=== PATIENT | female | born 1980 | race Caucasian/White ===

== ENCOUNTER 2021-05-23 16:04 | Inpatient (IN) | payer BC, SELFPAY ==
[2021-05-23] VITALS (7 sets, daily range): BP systolic 144–170; BP diastolic 95–116; PULSE 103–127; RESP 16–18; TEMP 35.9–37.2; O2SAT 97–100; BMI 34.2
--- NOTE | 2021-05-23 16:20 | EDS_ITS ---
HPI History of Present Illness Chief Complaint: GI Bleed Informant: patient Onset/Context/Timing Onset: Today Context: Gradual Onset Current Severity: Mild Maximum Severity: Mild Narrative Narrative: Patient presents due to concern for GI bleed. She is a history of variceal bleed a year and a half ago and was treated at . Patient states she felt well when she went to bed last night. She woke this morning with an uncomfortable feeling in her abdomen similar to her prior GI bleed. She has been having dark black stools today. She feels nauseated but has not vomited. She is not currently in any prescription medication and has not followed up for her liver/varices since her last hospital admission. [facility] Medical History (Updated 05/23/21 @ 17:[address] Kat Ferro MD) Alcoholic hepatitis Anxiety and depression Gastric varices Home Medications NK 05/23/21 [History Last Taken Unknown] Allergy/AdvReac Type Severity Reaction Status Date / Time phenobarbital Allergy Other Verified 05/23/21 16:06 Social History (Updated 05/23/21 @ 16:[address] Kat Ferro MD) Smoking Status: Current every day smoker tobacco type: cigarettes alcohol intake: current ROS ROS ED Constitutional Constitutional ED: Reports chills; Denies fever(s) Eyes Eyes: Denies change in vision ENT ENT ED: Denies sore throat Cardiovascular Cardiovascular: Denies chest pain Respiratory/Chest Respiratory/Chest: Denies cough or dyspnea Gastrointestinal Gastrointestinal: Reports abdominal pain, melena and nausea; Denies diarrhea or vomiting Genitourinary Genitourinary ED: Denies dysuria Musculoskeletal Musculoskeletal: Denies back pain Integumentary Denies rash Neurologic Neurologic: Denies headache(s) or weakness Allergic/Immunologic Allergic/Immunologic ED: Denies urticaria EXAM Physical Exam Const Vital Signs: 05/23/21 16:06 05/23/21 16:25 05/23/21 16:46 Temperature 96.6 F L Temperature Source Temporal Pulse Rate 127 H 125 H 103 H Respiratory Rate 18 16 16 Blood Pressure 170/116 H 144/112 H 155/97 H Blood Pressure Mean 134 122 116 Pulse Ox 98 98 97 Oxygen Delivery Method Room Air Room Air Room Air Positive well nourished and well developed General Appearance ED: well developed HEENT Reports moist mucous membranes Eyes PERRL and EOMs intact bilaterally Neck supple Chest Wall inspection of chest normal and palpation of chest normal Resp normal respiratory effort and clear to auscultation bilaterally Cardio regular rhythm Rate: tachycardic GI non-tender Auscultation: hypoactive bowel sounds Palpation: soft Extremity normal to inspection Neuro oriented x3 Sensorium / Orientation: alert Psych mental status grossly normal Skin no rashes or lesions noted MDM MDM MDM Narrative Medical decision making narrative: Patient given IV fluids along with morphine and Zofran for pain and nausea. She was given 80 mg of IV Protonix. Lab work obtained. Lab Data Attestation: I reviewed the patient's lab results. Labs: Laboratory Results - last 24 hr 05/23/21 05/23/21 05/23/21 16:25 16:25 16:25 WBC 10.0 RBC 3.93 L Hgb 12.2 Hct 37.4 MCV 95.2 MCH 31.0 MCHC 32.6 RDW Std Deviation 51.0 H RDW Coeff of Trent 14.5 Plt Count 198 MPV 9.9 Immature Gran % (Auto) 0.400 Neut % (Auto) 83.8 H Lymph % (Auto) 10.4 L [place] % (Auto) 5.2 Eos % (Auto) 0.0 Baso % (Auto) 0.2 Absolute Neuts (auto) 8.4 H Absolute Lymphs (auto) 1.04 Nucleated RBC % 0 PT 15.5 H INR 1.3 APTT 31.1 Sodium 135 L Potassium 3.3 L Chloride 102 Carbon Dioxide 24.0 Anion Gap 9 BUN 18 Creatinine 0.65 Estim Creat Clear Calc 103.53 Est GFR (MDRD) Af Amer 130 Est GFR (MDRD) Non-Af 107 BUN/Creatinine Ratio 27.7 H Glucose 144 H Calcium 8.8 Total Bilirubin 1.90 H Direct Bilirubin 0.74 H AST 205 H ALT 116 H Alkaline Phosphatase 168 H Total Protein 8.2 Albumin 3.4 Globulin 4.8 H Serum , Qual 05/23/21 16:25 WBC RBC Hgb Hct MCV MCH MCHC RDW Std Deviation RDW Coeff of Trent Plt Count MPV Immature Gran % (Auto) Neut % (Auto) Lymph % (Auto) [place] % (Auto) Eos % (Auto) Baso % (Auto) Absolute Neuts (auto) Absolute Lymphs (auto) Nucleated RBC % PT INR APTT Sodium Potassium Chloride Carbon Dioxide Anion Gap BUN Creatinine Estim Creat Clear Calc Est GFR (MDRD) Af Amer Est GFR (MDRD) Non-Af BUN/Creatinine Ratio Glucose Calcium Total Bilirubin Direct Bilirubin AST ALT Alkaline Phosphatase Total Protein Albumin Globulin Serum , Qual NEGATIVE Stool guaiac: Positive Treatment and Re-Evaluation Comments:: On repeat evaluation patient resting much more comfortably. Nausea is significantly improved. Lab work reviewed and does include a hemoglobin of 12.2 hematocrit 37.4. Coags are unremarkable. BUN is normal. LFTs are elevated. I was able to review prior labs from when she was admitted at a year and a half ago. At that time her LFTs were higher than today's visit. An outpatient visit following that hospital admission showed that they were significantly improved on February total bili of 1.3, AST 80, ALT 32, AP 182. Patient stool guaiac today is positive. Because of her higher risk of bleeding with varices I did speak with GLORIA Castle. He did recommend ensuring the patient's blood pressure does not elevate too high. If she becomes more unstable or develops further bleeding he did recommend ceftriaxone and octreotide, but does not feel that she needs this currently. He will see the patient in consult. I will speak with hospitalist. Discharge Plan Triage Chief Complaint: GI Bleed ED Provider: Kat Ferro Dx/Rx/DC Orders Clinical Impression: Acute GI bleeding Prescriptions: No Action NK RF: 0 Primary Care Provider: Care Physician,No Primary Referrals: Care Physician,No Primary [Primary Care Provider] - Disposition Disposition: Acute Care Hospital [facility]
[2021-05-23] MEDS: 0.9% Normal Saline 1,000 ML 1000 ML IV (16:33)
[2021-05-23] MEDS: Ondansetron 4 MG/2 ML Vial IV ×2 (16:34→18:46)
[2021-05-23] MEDS: Morphine 4 MG/ML Syringe IV (16:34)
[2021-05-23 16:36] LABS: Absolute Lymphocyte Count 1.04 X10^3/uL (0.83-4.51); Absolute Neutrophil Count 8.4 X10^3/uL (2.0-7.7); Basophil# 0.02 X10^3/uL; Basophil% 0.2 % (0-1); Hematocrit 37.4 % (37-47); Hemoglobin 12.2 g/dL (12.0-15.0); Lymphocyte # 1.04 X10^3/ul (0.83-4.51); Lymphocyte % 10.4 % (19-41); Mean Corp Hgb Conc 32.6 g/dL (32-36); Mean Corpuscular Volume 95.2 fL (81-99); Mean Platelet Vol. 9.9 fl (6.2-12.0); Monocyte# 0.52 X10^3/uL; Monocyte% 5.2 % (0-10); NRBC Flagged by Analyzer 0 % (0-5); Neutrophil # 8.36 X10^3/uL (2.7-7.7); Neutrophil % 83.8 % (47-70); Platelet Count 198 K/mm3 (150-450); RBC Distribution Width CV 14.5 % (11.6-14.6); Red Blood Count 3.93 M/mm3 (4.2-5.4)
[2021-05-23 16:45] LABS: International Normalized Ratio 1.3; Prothrombin Time (Protime)PT. 15.5 SECONDS (11.7-14.9)
[2021-05-23 16:46] LABS: Partial Thromboplast Time 31.1 Seconds (24.1-36.2)
[2021-05-23 16:51] LABS: Internal QC Validated? YES +Cl - CLEAR BKGD; Pregnancy, Serum, hCG Quali. NEGATIVE Negative
[2021-05-23 16:54] LABS: AST(SGOT) 205 U/L (15-37); Alanine Aminotransfer ALT/SGPT 116 U/L (13-56); Albumin, Serum 3.4 g/dL (3.2-5.0); Alkaline Phosphatase 168 U/L (45-117); Anion Gap 9 (5-15); BUN 18 mg/dL (7-18); BUN/Creat Ratio 27.7 RATIO (10-20); Bilirubin, Direct 0.74 mg/dL (0.00-0.30); Calcium,Total 8.8 mg/dL (8.5-10.1); Chloride 102 mmol/L (98-107); Creatinine, Serum 0.65 mg/dL (0.55-1.02); EST Glomerular Filtration Rate 107 mL/min (>60); Est Glom Filt Rate - Afr Amer 130 mL/min (>60); Estimated Creatinine Clearance 103.53 ml/min; Globulin 4.8 g/dL (2.2-4.2); Glucose 144 mg/dL (74-106); Potassium 3.3 mmol/L (3.5-5.1); Protein, Total 8.2 g/dL (6.4-8.2); Sodium Level 135 mmol/L (136-145)
--- NOTE | 2021-05-23 18:01 | HP.PCM_ITS ---
Documented by User: PARRISH Wilbrun 05/23/21 18:19 HPI - General General Date of Admission: 05/23/21 Date of Service: 05/23/21 Chief Complaint: GI bleed HPI Narrative CRESCENCIO BOSE, is a 40 F who presents with complaints of nausea and melanotic stools. Patient reports a history of bleeding varices in 2019 which she was seen for at and underwent a EGD. Patient states that she has not had any further follow-up. Patient states that she used to drink and that was the cause of her varices however patient continues to drink although she states that she has reduced her amount of alcohol intake substantially. Discussed with patient importance to completely stop alcohol intake due to presence of varices and patient verbalized interest in outpatient counseling and detox. Patient will be given information for 180. Patient denies any other history however patient is hypertensive upon arrival to ER. [facility] Medical History Alcoholic hepatitis Anxiety and depression Gastric varices Home Medications NK 05/23/21 [History Last Taken Unknown] Allergy/AdvReac Type Severity Reaction Status Date / Time phenobarbital Allergy Other Verified 05/23/21 16:06 Surgical History no surgical history no surgical history Social History Smoking Status: Current every day smoker tobacco type: cigarettes alcohol intake: current ROS Constitutional Constitutional: Denies anorexia, chills, fatigue, fever(s), malaise or weakness Cardiovascular Cardiovascular: Denies chest pain, edema, palpitations or syncope Respiratory/Chest Respiratory/Chest: Denies cough, shortness of breath at rest, shortness of breath with exertion or wheezing Gastrointestinal Gastrointestinal: Reports melena and nausea; Denies abdominal pain, constipation, diarrhea or vomiting Genitourinary Genitourinary: Denies dysuria or hematuria Musculoskeletal Musculoskeletal: Denies back pain, extremity pain, joint pain, joint stiffness or joint swelling Integumentary Integumentary: Denies dry skin or jaundice Neurologic Neurologic: Denies abnormal gait, abnormal speech, confusion, dizziness or focal weakness Psychiatric Psychiatric: Denies anxiety or depression Endocrine Endocrinology: Denies change in body appearance Hematologic/Lymphatic Hematologic/Lymphatic: Denies anemia Vital Signs Vital Signs Vital Signs: 05/23/21 16:06 05/23/21 16:25 05/23/21 16:46 Temperature 96.6 F L Temperature Source Temporal Pulse Rate 127 H 125 H 103 H Respiratory Rate 18 16 16 Blood Pressure 170/116 H 144/112 H 155/97 H Blood Pressure Mean 134 122 116 Pulse Ox 98 98 97 Oxygen Delivery Method Room Air Room Air Room Air Weight Weight: 206 lb 2.115 oz Body Mass Index (BMI) 34.2 Physical Exam Const alert, oriented x3 and no apparent distress General Appearance: cooperative HEENT normocephalic and head/scalp atraumatic Eyes conjunctivae normal and no scleral icterus Neck supple General: trachea midline Lymph Lymphatic: no lymphadenopathy noted Resp normal respiratory effort, normal air movement and clear to auscultation bilaterally Cardio regular rate, regular rhythm, S1 normal heart sound, S2 normal heart sound and peripheral pulses 2+ throughout Rate: tachycardic GI normal to inspection, nondistended, normoactive bowel sounds, soft to palpation and non-tender Extremity normal capillary refill and no clubbing, cyanosis or edema General Extremity: no tenderness to palpation of joints or extremities Skin General Skin Exam: no breakdown and turgor normal Lesions: no lesions Rashes: no rashes Neuro no focal motor deficits and no sensory deficits noted Speech: speech normal Motor Exam: Negative for general weakness Psych thought process normal, cooperative and affect normal Appearance: appropriate Results Lab / Micro Data Result Diagrams: 05/23/21 16:25 05/23/21 16:25 Labs: Laboratory Results - last 24 hr 05/23/21 16:25: WBC 10.0, RBC 3.93 L, Hgb 12.2, Hct 37.4, MCV 95.2, MCH 31.0, MCHC 32.6, RDW Std Deviation 51.0 H, RDW Coeff of Trent 14.5, Plt Count 198, MPV 9.9, Immature Gran % (Auto) 0.400, Neut % (Auto) 83.8 H, Lymph % (Auto) 10.4 L, [place] % (Auto) 5.2, Eos % (Auto) 0.0, Baso % (Auto) 0.2, Absolute Neuts (auto) 8.4 H, Absolute Lymphs (auto) 1.04, Nucleated RBC % 0 05/23/21 16:25: PT 15.5 H, INR 1.3, APTT 31.1 05/23/21 16:25: Sodium 135 L, Potassium 3.3 L, Chloride 102, Carbon Dioxide 24.0, Anion Gap 9, BUN 18, Creatinine 0.65, Estim Creat Clear Calc 103.53, Est GFR (MDRD) Af Amer 130, Est GFR (MDRD) Non-Af 107, BUN/Creatinine Ratio 27.7 H, Glucose 144 H, Calcium 8.8, Total Bilirubin 1.90 H, Direct Bilirubin 0.74 H, AST 205 H, ALT 116 H, Alkaline Phosphatase 168 H, Total Protein 8.2, Albumin 3.4, Globulin 4.8 H 05/23/21 16:25: Serum , Qual NEGATIVE 05/23/21 16:26: Blood Type B POSITIVE, Antibody Screen NEGATIVE Micro: Microbiology 05/23/21 16:54 Stool Stool Occult Blood (RUSS) - Final Occult Blood Positive Assessment & Plan Assessment/Plan (1) Acute GI bleeding: (2) Hypertension: QUALIFIERS: Hypertension type: primary hypertension Qualified Code(s): I10 - Essential (primary) hypertension (3) Hyperkalemia: PLAN: 1. Acute GI bleed -Admit to [facility] -Consult GI, case discussed with Dr. Ryder by ER physician. Plan for EGD tomorrow -Clear liquid diet ordered, n.p.o. at midnight -Hemoglobin and hematocrit every 4 hour -Hemoglobin currently stable at 12.2 -IV pantoprazole every 12 hours -Intake and output -Vital signs per protocol currently stable -O2 per protocol -CBC, BMP, liver profile, magnesium, phosphorus ordered for a.m. 2. Hypertension -Patient states she does not have a medical history of hypertension however she is hypertensive upon arrival -Patient is supposed to be on Coreg but has not been taking. Patient will be initiated on Coreg 6.25 twice daily -Vital signs per protocol 3. Hypokalemia -Potassium 3.3 -Due to patient's GI bleed we will give potassium chloride 20 mEq IV x1 -BMP ordered for a.m. 4. Alcohol dependence -Patient verbalized that she wants to stop drinking completely, will provide information for outpatient services at 180, patient amenable -Patient states that she has cut back on her drinking considerably but continues to drink and has not been able to completely stop on her own DVT prophylaxis-not indicated This patient was seen by Sol Galvan NP-C under the supervision of Dr. Rivera. 27 minutes spent in clinical coordination of patient's plan of care. Documented by User: Dr. Fam Rivera, 05/23/21 18:31 HPI - General General Date of Admission: 05/23/21 [facility] Medical History Alcoholic hepatitis Anxiety and depression Gastric varices Home Medications NK 05/23/21 [History Last Taken Unknown] Allergy/AdvReac Type Severity Reaction Status Date / Time phenobarbital Allergy Other Verified 05/23/21 16:06 Surgical History no surgical history Social History Smoking Status: Current every day smoker tobacco type: cigarettes alcohol intake: current Results Lab / Micro Data Result Diagrams: 05/23/21 16:25 05/23/21 16:25 Charges/Coding Addendum Addendum: Patient was seen and examined today independently of Donna Galvan, she came to the ER today with complaints of 2 episodes of black stool accompanied by abdominal cramping. Patient had no complaints of vomiting, hematemesis, or bright red rectal bleeding. Patient has had a past history of esophageal varices due to alcohol consumption. She admits that she does not follow-up with a physician on a chronic basis-it is her choice and she is noncompliant with following up. She is supposed to be on Coreg 3.125 mg twice a day but she does not take this medication. Patient continues to drink but she was vague on how m uch she actually drinks-she states that she does not drink every day. Patient denies any heartburn symptoms, she denies any epigastric abdominal pain. On examination she appeared in good health and spirits, she does not appear to be in any distress. Vital signs as documented. Skin warm and dry and without overt rashes. Neck without JVD, thyroid appears normal, trachea is midline, neck is supple. Lungs clear, normal air movement was noted. Heart exam notable for regular rhythm, normal sounds and absence of murmurs, rubs or gallops. Abdomen unremarkable and without evidence of organomegaly, masses, or abdominal aortic enlargement, bowel sounds are present in all 4 quadrants, no abdominal ten derness was noted. Extremities nonedematous, no cyanosis was noted, no clubbing was noted. Neuro: Cranial nerves II through XII are grossly intact, no focal motor deficits were noted, sensation to light touch and pinprick is intact, motor exam 5/5 throughout. Psych: Patient is alert and oriented x3, she does not appear anxious or depressed, she does not appear agitated. Patient's labs were reviewed, her hemoglobin is within normal range at this time, patient is hypertensive and tachycardic however. The ER physician contacted gastroenterology and they will see the patient and consultation, she will undergo an EGD tomorrow. Impression #1 melena-from possible upper GI bleed, patient will be placed in observation status on MedSurg, she will be placed on a clear liquid diet, she will be given IV Protonix, serial H&H's will be obtained, gastroenterology will see the patient in consultation. Patient will be placed on Coreg 6.25 mg twice daily. #2 fatty liver disease-questionable early cirrhosis-we do not have records from the physician the patient has seen last, she underwent an upper endoscope last in January 2020. Patient states she has never been told she has had cirrhosis. #3 hypertension-possibly essential hypertension-patient's mother was present in the exam room in the emergency room and states that she has multiple members of the family that have high blood pressure. Again patient will be placed on Coreg. Patient has expressed an interest in talking with someone who can help her stop drinking, we put in a consult for 180 to see the patient in consultation. I have reviewed Donna Galvan's history and physical including her medical assessment and plan of care and endorse it. The total clinical time spent on this patient by myself was 45 minutes. Visit Charges OBSV E&M: 57920 Initial observation care L3
--- NOTE | 2021-05-23 18:23 | PCS.PANDOC ---
PANDEMIC DOCUMENTATION INITIATED: Date: 12/07/2020 Time: 190
[2021-05-23] MEDS: Potassium Chloride 10mEq/100mL 10 MEQ/100 ML IV.SOLN. 100 MEQ IV BOLUS ×2 (19:48→21:00)
[2021-05-23 20:49] LABS: Hematocrit 29.1 % (37-47); Hemoglobin 9.3 g/dL (12.0-15.0)
[2021-05-23] MEDS: Carvedilol 6.25 MG Tablet PO (22:20)
[2021-05-23] MEDS: proCHLORPERazine 10 MG/2 ML Vial 5 MG IV (22:27)
[2021-05-23] MEDS: 0.9% Normal Saline 1,000 ML 150 ML IV (22:27)
[2021-05-24] VITALS (13 sets, daily range): BP systolic 136–143; BP diastolic 86–107; PULSE 95–102; RESP 16–18; TEMP 36.6–37.1; O2SAT 96–100; BMI 34.2
[2021-05-24 01:01] LABS: Hematocrit 25.2 % (37-47)
[2021-05-24] MEDS: 0.9% Normal Saline 1,000 ML 150 ML IV ×3 (04:26→16:56)
--- NOTE | 2021-05-24 05:00 | EKG12_ITS ---
Test Reason : AM EKG Blood Pressure : / mmHG Vent. Rate : 098 BPM Atrial Rate : 098 BPM P-R Int : 150 ms QRS Dur : 084 ms QT Int : 396 ms P-R-T Axes : 025 020 040 degrees QTc Int : 505 ms Normal sinus rhythm Prolonged QT Abnormal ECG No previous ECGs available Confirmed by WILLOW CHAVEZ, SHAR ([id number]), story editor WAYLON DEVINE ([id number]) on 05/25/2021 8:48:28 AM Referred By: MURRAY Confirmed By:SHAR DAUGHERTY MD
[2021-05-24] MEDS: Ondansetron 4 MG/2 ML Vial IV ×2 (05:30→16:45)
[2021-05-24 06:23] LABS: Absolute Lymphocyte Count 1.97 X10^3/uL (0.83-4.51); Absolute Neutrophil Count 5.3 X10^3/uL (2.0-7.7); Basophil# 0.04 X10^3/uL; Basophil% 0.5 % (0-1); Eosinophil# 0.04 X10^3/uL; Eosinophils% 0.5 % (0-5); Hematocrit 24.3 % (37-47); Hemoglobin 7.7 g/dL (12.0-15.0); Lymphocyte # 1.97 X10^3/ul (0.83-4.51); Lymphocyte % 24.8 % (19-41); Mean Corp Hgb Conc 31.7 g/dL (32-36); Mean Corpuscular Hgb 31.3 pg (27.0-32.0); Mean Corpuscular Volume 98.8 fL (81-99); Mean Platelet Vol. 9.9 fl (6.2-12.0); Monocyte# 0.58 X10^3/uL; Monocyte% 7.3 % (0-10); NRBC Flagged by Analyzer 0 % (0-5); Neutrophil # 5.28 X10^3/uL (2.7-7.7); Neutrophil % 66.6 % (47-70); Platelet Count 141 K/mm3 (150-450); RBC Distribution Width CV 14.7 % (11.6-14.6); RBC Distribution Width SD 53.6 fl (35.1-43.9); Red Blood Count 2.46 M/mm3 (4.2-5.4); White Blood Count 7.9 K/mm3 (4.4-11.0)
[2021-05-24] MEDS: LORazepam 2 MG/ML Syringe IV (06:39)
[2021-05-24 06:48] LABS: AST(SGOT) 95 U/L (15-37); Alanine Aminotransfer ALT/SGPT 67 U/L (13-56); Albumin, Serum 2.5 g/dL (3.2-5.0); Alkaline Phosphatase 96 U/L (45-117); Anion Gap 5 (5-15); BUN 20 mg/dL (7-18); BUN/Creat Ratio 43.1 RATIO (10-20); Bilirubin, Direct 0.63 mg/dL (0.00-0.30); Calcium,Total 7.3 mg/dL (8.5-10.1); Chloride 112 mmol/L (98-107); Creatinine, Serum 0.46 mg/dL (0.55-1.02); EST Glomerular Filtration Rate 158 mL/min (>60); Est Glom Filt Rate - Afr Amer 191 mL/min (>60); Estimated Creatinine Clearance 146.29 ml/min; Globulin 3.2 g/dL (2.2-4.2); Glucose 118 mg/dL (74-106); Magnesium 1.6 mg/dL (1.6-2.6); Phosphorus 1.4 mg/dL (2.5-4.9); Potassium 3.2 mmol/L (3.5-5.1); Protein, Total 5.7 g/dL (6.4-8.2); Sodium Level 140 mmol/L (136-145)
--- NOTE | 2021-05-24 12:39 | CON.PCM.GI_ITS ---
HPI Consult Data Date of Consult: 05/24/21 HPI Narrative HPI Narrative: CRESCENCIO BOSE, is a 40 F who presents with melena. 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 She is still currently drinking. Her last EGD she underwent esophageal banding followed by sclerotherapy to gastric varices. This was back in 2019 at [facility]. She has not followed up with a ecological economist or correctional food service supervisor. She does not take any blood thinners. On evaluation in the ED she was covered to have elevated liver enzymes consistent with alcoholic hepatitis. She still drinks about 40 to 60 g of alcohol per day and has a past medical history of substance abuse in the past. She does not know she has a history of hepatitis C. She has not had no history of ascites or encephalopathy. She has no family history liver disease. She is not using IV drugs. She does not have a history of HIV. All other 16 review of systems are negative except those pertinent positive mentioned HPI. [facility] Medical History (Updated 05/24/21 @ 12:[address] Rice Friend, DO) Alcohol use Alcoholic hepatitis Anxiety and depression Gastric varices HTN (hypertension) Restless legs Substance use Home Medications NK 05/23/21 [History Last Taken Unknown] Allergy/AdvReac Type Severity Reaction Status Date / Time phenobarbital Allergy Other Verified 05/23/21 16:06 Surgical History no surgical history Social History Smoking Status: Current every day smoker tobacco type: cigarettes alcohol intake: current ROS Gastrointestinal Gastrointestinal: Reports melena Physical Exam Const alert General Appearance: cooperative Orientation / Consciousness: oriented to person HEENT hearing grossly normal bilaterally Head and Scalp: normal to inspection Face and Sinus: face symmetric Nose: external nose normal Mouth: oral and palatal mucosa normal Eyes conjunctivae normal General Eye: normal appearance of both eyes Neck full ROM General: normal visual inspection Lymph Lymphatic: no lymphadenopathy noted Chest inspection of chest normal and palpation of chest normal Chest: symmetrical chest wall rise Resp normal respiratory effort Effort and Inspection: able to speak in complete sentences Cardio regular rate GI non-distended Percussion: normal to percussion Rectal Exam: deferred Neuro Speech: speech normal Gait (Neuro): normal gait Lab / Micro Data Result Diagrams: 05/24/21 06:03 05/24/21 06:03 Labs: Laboratory Results - last 24 hr 05/23/21 16:25: WBC 10.0, RBC 3.93 L, Hgb 12.2, Hct 37.4, MCV 95.2, MCH 31.0, MCHC 32.6, RDW Std Deviation 51.0 H, RDW Coeff of Trent 14.5, Plt Count 198, MPV 9.9, Immature Gran % (Auto) 0.400, Neut % (Auto) 83.8 H, Lymph % (Auto) 10.4 L, [place] % (Auto) 5.2, Eos % (Auto) 0.0, Baso % (Auto) 0.2, Absolute Neuts (auto) 8.4 H, Absolute Lymphs (auto) 1.04, Nucleated RBC % 0 05/23/21 16:25: PT 15.5 H, INR 1.3, APTT 31.1 05/23/21 16:25: Sodium 135 L, Potassium 3.3 L, Chloride 102, Carbon Dioxide 24.0, Anion Gap 9, BUN 18, Creatinine 0.65, Estim Creat Clear Calc 103.53, Est GFR (MDRD) Af Amer 130, Est GFR (MDRD) Non-Af 107, BUN/Creatinine Ratio 27.7 H, Glucose 144 H, Calcium 8.8, Total Bilirubin 1.90 H, Direct Bilirubin 0.74 H, AST 205 H, ALT 116 H, Alkaline Phosphatase 168 H, Total Protein 8.2, Albumin 3.4, Globulin 4.8 H 05/23/21 16:25: Serum , Qual NEGATIVE 05/23/21 16:26: Blood Type B POSITIVE, Antibody Screen NEGATIVE 05/23/21 20:38: Hgb 9.3 L, Hct 29.1 L 05/24/21 00:55: Hgb 8.0 L, Hct 25.2 L 05/24/21 06:03: WBC 7.9, RBC 2.46 L, Hgb 7.7 L, Hct 24.3 L, MCV 98.8, MCH 31.3, MCHC 31.7 L, RDW Std Deviation 53.6 H, RDW Coeff of Trent 14.7 H, Plt Count 141 L, MPV 9.9, Immature Gran % (Auto) 0.300, Neut % (Auto) 66.6, Lymph % (Auto) 24.8, [place] % (Auto) 7.3, Eos % (Auto) 0.5, Baso % (Auto) 0.5, Absolute Neuts (auto) 5.3, Absolute Lymphs (auto) 1.97, Nucleated RBC % 0 05/24/21 06:03: Sodium 140, Potassium 3.2 L, Chloride 112 H, Carbon Dioxide 23.0, Anion Gap 5, BUN 20 H, Creatinine 0.46 L, Estim Creat Clear Calc 146.29, Est GFR (MDRD) Af Amer 191, Est GFR (MDRD) Non-Af 158, BUN/Creatinine Ratio 43.1 H, Glucose 118 H, Calcium 7.3 L, Phosphorus 1.4 L, Magnesium 1.6, Total Bilirubin 1.60 H, Direct Bilirubin 0.63 H, AST 95 H, ALT 67 H, Alkaline Phosphatase 96, Total Protein 5.7 L, Albumin 2.5 L, Globulin 3.2 Micro: Microbiology 05/23/21 16:54 Stool Stool Occult Blood (RUSS) - Final Occult Blood Positive Assessment & Plan Assessment/Plan (1) Acute GI bleeding: PLAN: The differential diagnosis for upper GI bleed includes portal gastropathy, esophageal varices, gastric varices, peptic ulcer disease. She should undergo [facility] of PPI therapy. Her platelet count is normal and her INR is within normal limits. She was explained alternatives, risk, benefits including not withstanding bleeding, infection, sepsis, perforation, need for emergency or . She will have an ASA of 3. (2) Alcoholic hepatitis: PLAN: She has a low discriminant score and is not requiring any steroids at this time. Also do not recommend an Pentoxyfilline. She is not showing any signs of delirium tremens at this time. Recommend to give B vitamins and possible CIWA protocol. Charges/Coding Visit Charges Inpatient E&M: 50906 Init Hosp L2
--- NOTE | 2021-05-24 13:21 | OP.EGD_ITS ---
Patient Name: Flor El Procedure Date: 05/24/2021 12:37 PM Date of : 1980 Age: 40 Procedure: Upper GI endoscopy Indications: Melena, Esophageal varices Providers: Dwayne Ryder DO Medicines: See the Anesthesia note for documentation of the administered medications Patient Profile: This is a 40 year old female. Refer to note in patient chart for documentation of history and physical. Patient has symptoms. She is status post EGD for treatment of bleeding within the past three years. Complications: No immediate complications. Procedure: Pre-Anesthesia Assessment: - Prior to the procedure, a History and Physical was performed, and patient medications and allergies were reviewed. The patient is competent. The risks and benefits of the procedure and the sedation options and risks were discussed with the patient. All questions were answered and informed consent was obtained. Patient identification and proposed procedure were verified by the physician. Mental Status Examination: alert and oriented. Airway Examination: normal oropharyngeal airway and neck mobility. Respiratory Examination: clear to auscultation. CV Examination: normal. Prophylactic Antibiotics: The patient does not require prophylactic antibiotics. Prior Anticoagulants: The patient has taken no previous anticoagulant or antiplatelet agents. ASA Grade Assessment: II - A patient with mild systemic disease. After reviewing the risks and benefits, the patient was deemed in satisfactory condition to undergo the procedure. The anesthesia plan was to use moderate sedation / analgesia (conscious sedation). Immediately prior to administration of medications, the patient was re-assessed for adequacy to receive sedatives. The heart rate, respiratory rate, oxygen saturations, blood pressure, adequacy of pulmonary ventilation, and response to care were monitored throughout the procedure. The physical status of the patient was re-assessed after the procedure. After obtaining informed consent, the endoscope was passed under direct vision. Throughout the procedure, the patient's blood pressure, pulse, and oxygen saturations were monitored continuously. The gastroscope was introduced through the mouth, and advanced to the second part of duodenum. The upper GI endoscopy was accomplished without difficulty. The patient tolerated the procedure well. Moderate Sedation: Moderate (conscious) sedation was administered by the endoscopy nurse and supervised by the endoscopist. The following parameters were monitored: oxygen saturation, heart rate, blood pressure, and response to care. Total physician intraservice time was 15 minutes. Scope In: 12:53:09 PM Scope Withdrawal Time 0 hours 0 minutes 1 second Scope Out: 1:03:45 PM Total Procedure Duration Time 0 hours 10 minutes 36 seconds Findings: A 5 mm bleeding Joceline-Skinner tear with stigmata of recent bleeding was found. Coagulation for hemostasis using heater probe was successful. Estimated blood loss was minimal. Type 2 isolated gastric varices (IGV2, varices located in the body, antrum or around the pylorus) with stigmata of prior treatment were found in the cardia. There were no stigmata of recent bleeding. They were 5 mm in largest diameter. Severe portal hypertensive gastropathy was found in the entire examined stomach. The second portion of the duodenum was normal. Impression: - Joceline-Skinner tear. Treated with a heater probe. - Type 2 isolated gastric varices (IGV2, varices located in the body, antrum or around the pylorus), previously treated. - Portal hypertensive gastropathy. - Normal second portion of the duodenum. - No specimens collected. Recommendation: - [facility] care. - Full liquid diet daily. - Use Protonix (pantoprazole) 40 mg PO BID. - Continue present medications. Procedure Code(s): --- Professional --- 40822, Esophagogastroduodenoscopy, flexible, transoral; with control of bleeding, any method 02243, 59, Moderate sedation services provided by the same physician or other qualified health healthcare representative performing the diagnostic or therapeutic service that the sedation supports, requiring the presence of an independent trained observer to assist in the monitoring of the patient's level of consciousness and physiological status; initial 15 minutes of intraservice time, patient age 5 years or older CPT copyright 2017 [employer]. All rights reserved. The codes documented in this report are preliminary and upon him coder review may be revised to meet current compliance requirements. Dwayne Ryder DO 05/24/2021 1:21:45 PM This report has been signed electronically. Number of Addenda: 1 Note Initiated On: 05/24/2021 12:37 PM Addendum Number: 1 Addendum Date: 12/30/2021 6:25:39 AM MAC was used instead of moderate sedation for the patient. Dwayne Ryder DO 12/30/2021 6:25:43 AM This report has been signed electronically.
--- NOTE | 2021-05-24 13:21 | PCM.PN.HOSP ---
Subjective Subjective Patient was seen and examined today, her hemoglobin did drop this morning to 7.7, she states she is seen additional dark bowel movements since admission yesterday. Patient will go for an EGD today, she remains on IV Protonix. Nursing told me today that the patient told nursing that the patient does drink on a daily basis as many as 10 drinks a day. This is in opposition to what she told me yesterday-she was very vague about how much she drank and told me she did not drink on a daily basis yesterday. Objective Data Objective Data Vital Signs: Vital Signs Temp Pulse Resp BP Pulse Ox 98.4 F 98 16 143/104 H 100 05/24/21 13:10 05/24/21 13:15 05/24/21 13:15 05/24/21 13:15 05/24/21 13:15 Oxygen Delivery Method Room Air Weight: 93.5 kg Body Mass Index (BMI) 34.2 Intake & Output: Intake and Output for Last 24 Hours 05/22/21 05/23/21 05/24/21 23:59 23:59 23:59 Intake Total 1345 / 1345 2183.75 / 2183.75 Balance 1345 / 1345 2183.75 / 2183.75 Lab / Micro Data Result Diagrams: 05/24/21 06:03 05/24/21 06:03 Labs: Laboratory Results - last 24 hr 05/23/21 16:25: WBC 10.0, RBC 3.93 L, Hgb 12.2, Hct 37.4, MCV 95.2, MCH 31.0, MCHC 32.6, RDW Std Deviation 51.0 H, RDW Coeff of Trent 14.5, Plt Count 198, MPV 9.9, Immature Gran % (Auto) 0.400, Neut % (Auto) 83.8 H, Lymph % (Auto) 10.4 L, [place] % (Auto) 5.2, Eos % (Auto) 0.0, Baso % (Auto) 0.2, Absolute Neuts (auto) 8.4 H, Absolute Lymphs (auto) 1.04, Nucleated RBC % 0 05/23/21 16:25: PT 15.5 H, INR 1.3, APTT 31.1 05/23/21 16:25: Sodium 135 L, Potassium 3.3 L, Chloride 102, Carbon Dioxide 24.0, Anion Gap 9, BUN 18, Creatinine 0.65, Estim Creat Clear Calc 103.53, Est GFR (MDRD) Af Amer 130, Est GFR (MDRD) Non-Af 107, BUN/Creatinine Ratio 27.7 H, Glucose 144 H, Calcium 8.8, Total Bilirubin 1.90 H, Direct Bilirubin 0.74 H, AST 205 H, ALT 116 H, Alkaline Phosphatase 168 H, Total Protein 8.2, Albumin 3.4, Globulin 4.8 H 05/23/21 16:25: Serum , Qual NEGATIVE 05/23/21 16:26: Blood Type B POSITIVE, Antibody Screen NEGATIVE 05/23/21 20:38: Hgb 9.3 L, Hct 29.1 L 05/24/21 00:55: Hgb 8.0 L, Hct 25.2 L 05/24/21 06:03: WBC 7.9, RBC 2.46 L, Hgb 7.7 L, Hct 24.3 L, MCV 98.8, MCH 31.3, MCHC 31.7 L, RDW Std Deviation 53.6 H, RDW Coeff of [place] 14.7 H, Plt Count 141 L, MPV 9.9, Immature Gran % (Auto) 0.300, Neut % (Auto) 66.6, Lymph % (Auto) 24.8, [place] % (Auto) 7.3, Eos % (Auto) 0.5, Baso % (Auto) 0.5, Absolute Neuts (auto) 5.3, Absolute Lymphs (auto) 1.97, Nucleated RBC % 0 05/24/21 06:03: Sodium 140, Potassium 3.2 L, Chloride 112 H, Carbon Dioxide 23.0, Anion Gap 5, BUN 20 H, Creatinine 0.46 L, Estim Creat Clear Calc 146.29, Est GFR (MDRD) Af Amer 191, Est GFR (MDRD) Non-Af 158, BUN/Creatinine Ratio 43.1 H, Glucose 118 H, Calcium 7.3 L, Phosphorus 1.4 L, Magnesium 1.6, Total Bilirubin 1.60 H, Direct Bilirubin 0.63 H, AST 95 H, ALT 67 H, Alkaline Phosphatase 96, Total Protein 5.7 L, Albumin 2.5 L, Globulin 3.2 Micro: Microbiology 05/23/21 16:54 Stool Stool Occult Blood (RUSS) - Final Occult Blood Positive Physical Exam Const alert, oriented x3, no apparent distress and healthy appearing General Appearance: cooperative, well kempt and well developed Orientation / Consciousness: awake, oriented to person, oriented to place and oriented to time HEENT normocephalic and moist oral mucous membranes Eyes PERRL, EOMs intact bilaterally and conjunctivae normal Neck nuchal rigidity, supple, no JVD, thyroid normal and no carotid bruits General: trachea midline Resp normal respiratory effort and clear to auscultation bilaterally Auscultation: Negative for rales, rhonchi or wheezes Cardio regular rate, regular rhythm, no murmurs, no rub and no gallops GI normal to inspection, nondistended, normoactive bowel sounds, soft to palpation, non-tender and non-distended Extremity no clubbing, cyanosis or edema Skin no rashes or lesions noted General Skin Exam: no breakdown Neuro oriented x3, CN's II-XII intact bilaterally, no focal motor deficits and no sensory deficits noted Sensorium / Orientation: awake and alert Speech: speech normal Psych thought process normal and affect normal Assessment & Plan Assessment/Plan (1) Acute GI bleeding: PLAN: 1. Upper GI bleed-etiology unclear, patient at this time does not require blood transfusion, I will recheck her blood count this afternoon, she will remain on present treatment, she will be seeing gastroenterology today for an EGD. #2 acute blood loss anemia secondary to upper GI bleed-again patient does not require blood transfusion at this time, I will recheck patient's hemoglobin this afternoon #3 alcoholic hepatitis-supportive care will be given, I will stress that she must abstain from using alcohol #4 chronic alcoholism-patient has requested to talk with addiction social worker palliative care during her hospitalization #5 hypertension-patient will need additional medications for blood pressure control, I will review her blood pressure medications, I have decided to increase the patient's Coreg to 12.5 mg twice daily and add lisinopril if needed. #6 hypokalemia-patient will be given additional potassium supplementation, labs will be rechecked #7 noncompliance with medical regimen-I talked to the patient yesterday about the importance of taking her medications, I will emphasize this to her at the time of her discharge.
--- NOTE | 2021-05-24 13:22 | OP.CCLET_ITS ---
12/30/2021 No Primary Care Physician Re : Upper GI endoscopy procedure for Flor El Dear Care Physician This procedure was performed on Monday, May 24, 2021. My impressions and recommendations are as follows: Impressions : - Joceline-Skinner tear. Treated with a heater probe. - Type 2 isolated gastric varices (IGV2, varices located in the body, antrum or around the pylorus), previously treated. - Portal hypertensive gastropathy. - Normal second portion of the duodenum. - No specimens collected. Recommendations : - [facility] for [facility]. - Full liquid diet daily. - Use Protonix (pantoprazole) 40 mg PO BID. - Continue present medications. My findings are described in the full procedure note, which is enclosed. If I can be of further assistance, please feel free to contact me at . Sincerely, Dwayne Friend, DO 05/24/2021 1:21:45 PM This report has been signed electronically.
--- NOTE | 2021-05-24 15:19 | CASEMGMT ---
Social Work Physician asked SW to bring pt information on [facility]. SW met w/pt, brought pt information on [facility], [facility] and [facility]. Pt is interested in following up at [facility]. SW offered to call to find out about the intake process, pt agreeable to this. Pt states she works and needs to get backto work, so wants to know when they have intakes. SW called, at this time [facility] does have walk in intake appointments but may be better to make an appointment. They do have evening appointments on Mondays and up to 6pm. SW let pt know this, she plans to call to make herself an appointment. No further needs are anticipated at this time. NESSA Esparza
[2021-05-24] MEDS: 0.9% Saline Lock 10 ML Syringe IV ×2 (16:46→21:02)
[2021-05-24] MEDS: Morphine 4 MG/ML Syringe IV ×2 (16:46→21:02)
[2021-05-24 17:59] LABS: Hematocrit 23.6 % (37-47); Hemoglobin 7.6 g/dL (12.0-15.0)
[2021-05-24] MEDS: Potassium Chloride 10mEq/100mL 10 MEQ/100 ML IV.SOLN. 100 MEQ IV BOLUS (18:30)
[2021-05-24] MEDS: Potassium Chloride 10mEq/100mL 10 MEQ/100 ML IV.SOLN. 50 MEQ IV BOLUS (21:02)
[2021-05-24] MEDS: Pantoprazole Sodium 40 MG Tablet PO (21:44)
[2021-05-24] MEDS: Carvedilol 12.5 MG Tablet PO (21:44)
[2021-05-25 03:50] VITALS: BP 108/68; PULSE 86; RESP 16; TEMP 37.1; O2SAT 100
[2021-05-25] MEDS: Acetaminophen 500 MG Tablet PO (04:23)
[2021-05-25] MEDS: 0.9% Normal Saline 1,000 ML 75 ML IV (04:24)
[2021-05-25] MEDS: LORazepam 1 MG Tablet 2 MG PO (04:37)
[2021-05-25 09:41] VITALS: BP 112/70; PULSE 92; RESP 18; TEMP 36.7; O2SAT 98
[2021-05-25] MEDS: Pantoprazole Sodium 40 MG Tablet PO (09:46)
[2021-05-25] MEDS: Carvedilol 12.5 MG Tablet PO (09:46)
--- NOTE | 2021-05-25 10:15 | CASEMGMT ---
RN CM Face to Face with patient for initial transition planning/care coordination assessment. RN CM introduced self and role at [facility]. Patient lying in bed, alert and oriented. Patient willing to participate in assessment and is able to answer all questions appropriately. Care providers, pharmacy, and demographics verified. Patient wishes to discharge home, denies need for home health at this time. Patient states she has no further needs or concerns at this time. CM to follow for discharge planning needs that may arise. PCP: No PCP, patient provided with list of providers Specialists: none [facility]erred [facility]acy: [facility] Insurance: Spike Prescription Benefit: yes Living Will/HPOA: none LNOK: parents Living Arrangements: Patient states she lives alone in a 2 story home with access to bed and bath on first floor. Patient states she is independent at home. Transportation: self/parents DME/HHC: Patient denies DME or previous HHC. Patient states she smokes 1PPD of cigarettes and drinks 1/5 of vodka every couple of days. Patient interested in resources and speaking to Ramo at [facility]. Patient also provided with information regarding tobacco cessation program at [facility]. Disposition Plan: Patient to discharge home with family support and follow-up plans in place. Darlene CAICEDO, RN, CM
--- NOTE | 2021-05-25 10:45 | ADDICTION ---
This worker met with pt to discuss possible resources for her alcohol use. Gave pt the Addiction Workbook and the number for [facility] per request. She reported that she would not like an appointment date but would call once she was discharged.
--- NOTE | 2021-05-25 12:03 | PCM.DC ---
Discharge Instructions Diet Discharge Diet: No restrictions Activity Discharge Activity: Return to Normal Activity Follow Up Care Test Results: Test results from this visit will be discussed in further detail at your follow-up appointment, if applicable. Discharge Plan Admission Admit Date/Time: 05/24/21 06:03 Primary Reason for Your Visit: upper gi bleed Attending Provider: Fam Rivera Primary Care Provider: Care Physician,No Primary Instructions Additional Instructions / Restrictions: Take Ferrous sulfate 325 mg twice daily starting in 5 days-your stool will be black when taking this Follow up with 180 regarding alcohol abstinence-do not drink Discharge Orders/Prescriptions Prescriptions: New carvedilol 12.5 mg Tablet 12.5 mg PO BID Qty: 60 RF: 0 pantoprazole 40 mg Tablet,Delayed Release (Dr/Ec) 40 mg PO BID Qty: 60 RF: 0 lorazepam 1 mg Tablet 2 mg PO Q6H PRN PRN (Reason: CIWA score > 8 but <15) Qty: 12 RF: 0 lorazepam 2 mg tablet 2 mg PO TID PRN (Reason: alcohol withdrawal) Qty: 14 RF: 0 Referrals / Follow Up: FriendDwayne DO [STAFF PHYSICIAN] - See Referral Note (in two weeks-call for appointment) Care Physician,No Primary [Primary Care Provider] - Within 1 Month Disposition Disposition (needs filled in before D/C Order can be placed): Home, Self Care
[2021-05-25 13:03] VITALS: BP 112/74; PULSE 87; RESP 18; TEMP 37.1; O2SAT 99
--- NOTE | 2021-05-25 18:49 | PCM.DC.SUM ---
Providers Date of Admission: 05/24/21 Date of Discharge: 05/25/21 Primary Care Physician: Maria Elena Primary Care Phys Consultations 05/23/21 18:21 Consult: Gastroenterology Routine Consulting Provider: Alberto Mason Reason for Consult: GI bleed EMERGENT Consult: No MD Notified: Yes Date Notified: 05/23/21 Time Notified: 17:56 Method of Notification: Provider Initiated Reason For Visit: GI BLEED Diagnosis Discharge Diagnosis (1) Acute GI bleeding: Status: Acute Code(s): K92.2 - Gastrointestinal hemorrhage, unspecified Plan: Final diagnosis: #1 upper GI bleed-secondary to Joceline-Skinner tear of the esophagus #2 acute blood loss anemia secondary to upper GI bleed not requiring transfusion #3 alcoholic hepatitis #4 chronic alcoholism #5 essential hypertension #6 hypokalemia #7 noncompliance with medical regimen Medications at Discharge Home Medications carvedilol 12.5 mg PO BID #60 tab 05/25/21 lorazepam 2 mg PO Q6H PRN PRN #12 tab 05/25/21 lorazepam 2 mg PO TID PRN #14 tab 05/25/21 pantoprazole 40 mg PO BID #60 tab 05/25/21 Hospital Course Operations None Procedures EGD Summary of Care Provided Minutes Spent on Discharge: 32 Hospital Course: This 40-year-old white female presented to the emergency room with complaints of nausea and melanotic stools, she has a past history of esophageal variceal bleeding due to chronic alcoholism in the past and had underwent EGD with treatment in 2019. Patient was noncompliant with stopping her alcohol usage and also she did not take her medications as directed-patient did not give an exact reason for being noncompliant. Work-up in the emergency room included labs which showed a hemoglobin of 12.2, potassium was low at 3.3, stool was positive for occult blood, and patient's liver enzymes are elevated. Gastroenterology was contacted by the emergency room physician and agreed to see the patient in consultation, patient was admitted to [place] [id number], she was hypertensive and she was placed on medications for high blood pressure, she was also placed on a PPI and serial blood counts were obtained, her blood count did drop but it did not drop low enough to indicate the need for a blood transfusion. Patient underwent an EGD during her hospitalization which showed a Joceline-Skinner tear, this was treated, no overt bleeding was seen in the stomach however, patient did well during her hospital stay you received information from child welfare social worker regarding alcohol cessation at her request. On 05/25/2021, patient was seen and examined: On examination she appeared in good health and spirits, she does not appear to be in any distress. Vital signs as documented. Skin warm and dry and without overt rashes. Neck without JVD, thyroid appears normal, trachea is midline, neck is supple. Lungs clear, normal air movement was noted. Heart exam notable for regular rhythm, normal sounds and absence of murmurs, rubs or gallops. Abdomen unremarkable and without evidence of organomegaly, masses, or abdominal aortic enlargement, bowel sounds are present in all 4 quadrants, no abdominal tenderness was noted. Extremities nonedematous, no cyanosis was noted, no clubbing was noted. Neuro: Cranial nerves II through XII are grossly intact, no focal motor deficits were noted, sensation to light touch and pinprick is intact, motor exam 5/5 throughout. Psych: Patient is alert and oriented x3, she does not appear anxious or depressed, she does not appear agitated. Patient was discharged home in stable condition on 05/25/2021. Weight / BMI Weight Weight: 93.5 kg Body Mass Index (BMI) 34.2 ABG / Lab / Microbiology Data Result Diagrams: 05/24/21 17:48 05/24/21 06:03 Microbiology: Microbiology 05/23/21 16:54 Stool Stool Occult Blood (RUSS) - Final Occult Blood Positive D/C Instructions Discharge Diet: No restrictions Meaningful Use Info Meaningful Use Diagnoses (Choose all that apply): None applicable Discharge Plan Admission Admit Date/Time: 05/24/21 06:03 Primary Reason for Your Visit: upper gi bleed Attending Provider: Fam Rivera Primary Care Provider: Care Physician,No Primary Instructions Additional Instructions / Restrictions: Take Ferrous sulfate 325 mg twice daily starting in 5 days-your stool will be black when taking this Follow up with 180 regarding alcohol abstinence-do not drink Discharge Orders/Prescriptions Prescriptions: New carvedilol 12.5 mg Tablet 12.5 mg PO BID Qty: 60 RF: 0 pantoprazole 40 mg Tablet,Delayed Release (Dr/Ec) 40 mg PO BID Qty: 60 RF: 0 lorazepam 1 mg Tablet 2 mg PO Q6H PRN PRN (Reason: CIWA score > 8 but <15) Qty: 12 RF: 0 lorazepam 2 mg tablet 2 mg PO TID PRN (Reason: alcohol withdrawal) Qty: 14 RF: 0 Referrals / Follow Up: FriendDwayne DO [STAFF PHYSICIAN] - See Referral Note (in two weeks-call for appointment) Care Physician,No Primary [Primary Care Provider] - Within 1 Month Disposition Disposition (needs filled in before D/C Order can be placed): Home, Self Care Charges/Coding Visit Charges Inpatient E&M: 45582 Disch Hosp
== END 2021-05-25 13:25 | disposition home or self-care (01) | DRG 369 ==
LOC: ED 17:27 → MS3 17:59
PROVIDERS: Internal Medicine Gastroenterology; Nurse Practitioner Family; Admitting Provider Internal Medicine; Emergency Provider Emergency Medicine; Visit Provider Internal Medicine
PROC: 0DJ08ZZ Inspection of Upper Intestinal Tract, Via Natural or Artificial Opening Endoscopic (ICD-10-PCS; CPT 43235; principal; 2021-05-24 12:10)
DX: K22.6 Gastro-esophageal laceration-hemorrhage syndrome (principal); K76.6 Portal hypertension; D62 Acute posthemorrhagic anemia; K70.10 Alcoholic hepatitis without ascites; I85.01 Esophageal varices with bleeding; F10.20 Alcohol dependence, uncomplicated; K76.0 Fatty (change of) liver, not elsewhere classified; E87.6 Hypokalemia; F17.210 Nicotine dependence, cigarettes, uncomplicated; I10 Essential (primary) hypertension; Z91.19 Patient's noncompliance with other medical treatment and regimen
CPT/HCPCS: 36415; 80048; 80076; 82274; 83735; 84100; 84703; 85014; 85018; 85025; 85610; 85730; 86850; 86900; 86901; 93005; 99285; J7030; J7050; A4216; J2405; J3490

== ENCOUNTER 2021-06-08 08:56 | Outpatient (CLI) | payer BC, SELFPAY ==
[2021-06-08 09:59] LABS: Absolute Lymphocyte Count 1.36 X10^3/uL (0.83-4.51); Absolute Neutrophil Count 4.9 X10^3/uL (2.0-7.7); Basophil# 0.05 X10^3/uL; Basophil% 0.7 % (0-1); Eosinophil# 0.17 X10^3/uL; Eosinophils% 2.5 % (0-5); Hematocrit 29.3 % (37-47); Lymphocyte # 1.36 X10^3/ul (0.83-4.51); Lymphocyte % 19.7 % (19-41); Mean Corp Hgb Conc 30.7 g/dL (32-36); Mean Corpuscular Hgb 29.3 pg (27.0-32.0); Mean Corpuscular Volume 95.4 fL (81-99); Mean Platelet Vol. 10.1 fl (6.2-12.0); Monocyte# 0.45 X10^3/uL; Monocyte% 6.5 % (0-10); NRBC Flagged by Analyzer 0 % (0-5); Neutrophil # 4.85 X10^3/uL (2.7-7.7); Neutrophil % 70.5 % (47-70); Platelet Count 288 K/mm3 (150-450); RBC Distribution Width SD 55.5 fl (35.1-43.9); RET-HE 23.8 pg (30-35); Red Blood Count 3.07 M/mm3 (4.2-5.4); Reticulocyte Count 3.68 % (0.5-1.5); White Blood Count 6.9 K/mm3 (4.4-11.0)
[2021-06-08 10:10] LABS: International Normalized Ratio 1.3; Prothrombin Time (Protime)PT. 15.3 SECONDS (11.7-14.9)
[2021-06-08 10:11] LABS: Partial Thromboplast Time 31.5 Seconds (24.1-36.2)
[2021-06-08 10:14] LABS: Hemoglobin A1c 4.9 % (3.8-5.6)
[2021-06-08 10:26] LABS: Erythrocyte Sedimentation Rate 26 mm/hr (0-30)
[2021-06-08 10:36] LABS: ALB/GLOB Ratio 0.8 RATIO (0.9-2.4); AST(SGOT) 86 U/L (15-37); Alanine Aminotransfer ALT/SGPT 61 U/L (13-56); Albumin, Serum 3.4 g/dL (3.2-5.0); Alkaline Phosphatase 125 U/L (45-117); Anion Gap 8 (5-15); BUN 6 mg/dL (7-18); BUN/Creat Ratio 9.2 RATIO (10-20); Bilirubin, Direct 0.28 mg/dL (0.00-0.30); CRP 8.02 mg/L (0.0-3.0); Calcium,Total 8.8 mg/dL (8.5-10.1); Chloride 103 mmol/L (98-107); Creatinine, Serum 0.66 mg/dL (0.55-1.02); EST Glomerular Filtration Rate 106 mL/min (>60); Est Glom Filt Rate - Afr Amer 128 mL/min (>60); Ferritin 39 ng/mL (8-252); Globulin 4.3 g/dL (2.2-4.2); Glucose 107 mg/dL (74-106); Iron 25 ug/dL (50-170); Iron Binding Capacity,Total 423 ug/dL (250-450); LDH 177 U/L (84-246); PERCENT IRON SATURATION 5.9 % (15.0-55.0); Potassium 4.2 mmol/L (3.5-5.1); Protein, Total 7.7 g/dL (6.4-8.2); Sodium Level 135 mmol/L (136-145)
[2021-06-08 12:01] LABS: HIV - WCH Preliminary Reactive (Nonreactive); Vitamin B12 526 pg/mL (211-911)
[2021-06-09 16:10] LABS: Anti-Centromere B Ab <0.2 AI (0.0-0.9); Anti-Chromatin <0.2 AI (0.0-0.9); Anti-Jo <0.2 AI (0.0-0.9); Anti-Scleroderma-70 AB <0.2 AI (0.0-0.9); RNP Ab <0.2 AI (0.0-0.9); SJOGREN'S Anti-SS-A test < 0.2 AI (0.0-0.9); SJOGREN'S Anti-SS-B test < 0.2 AI (0.0-0.9); Smith Ab <0.2 AI (0.0-0.9)
[2021-06-09 17:53] LABS: Anti-Mitochondrial AB <20.0 Units (0.0-20.0); Anti-dsDNA Ab <1 IU/mL (0-9)
[2021-06-13 01:06] LABS: Angiotensin Convert Enzyme 68 U/L (14-82); Ceruloplasmin 34.7 mg/dL (19.0-39.0); Cytoplasmic Ab (C-ANCA) <1:20 titer (Neg:<1:20); HEPATITIS B SURFACE AG Negative (Negative); Haptoglobin 161 mg/dL (33-278); Hepatitis A IgM Antibody Negative (Negative); Hepatitis B Core AB IgM Negative (Negative); Immunoglobulin A 328 mg/dL (87-352); Immunoglobulin E 69 IU/mL (6-495); Immunoglobulin G 1204 mg/dL (586-1602)
[2021-06-13 13:27] LABS: AFP, Tumor Marker 4.6 ng/mL (0.0-8.3); Anti-Smooth Muscle ABS 6 Units (0-19); Copper, Serum or Plasma 139 ug/dL (80-158); Hep C Antibodies <0.1 s/co ratio (0.0-0.9); Immunoglobulin M 120 mg/dL (26-217); Perinuclear Ab (P-ANCA) <1:20 titer (Neg:<1:20)
== END 2021-06-08 23:59 | disposition home or self-care (01) ==
PROVIDERS: Referring Provider Nurse Practitioner Adult Health; Visit Provider Nurse Practitioner Adult Health
DX: K70.10 Alcoholic hepatitis without ascites (principal)
CPT/HCPCS: 36415; 80053; 80074; 82105; 82140; 82164; 82248; 82390; 82525; 82607; 82728; 82784; 82785; 83010; 83036; 83516; 83540; 83550; 83615; 85025; 85045; 85610; 85652; 85730; 86140; 86225; 86235; 86256; 86703

== ENCOUNTER 2021-06-21 12:39 | Outpatient (CLI) | payer BC, SELFPAY ==
--- NOTE | 2021-06-21 13:03 | CT_ITS ---
STUDY: CT ABDOMEN AND PELVIS WITH CONTRAST REASON FOR EXAM: Female, 40 years old. alcohol related hepatitis, GI bleed RADIATION DOSAGE (If Supplied By Facility): CTDIvol = ( 16.28 ) mGy, DLP = ( 1230.18 ) mGycm TECHNIQUE: Transaxial images were obtained from the dome of the diaphragm to the symphysis pubis with oral contrast. Oral and amp; IV Readi-CAT and amp; 100mL Isovue-300 was administered. Sagittal and coronal images were reconstructed. Individualized dose optimization techniques were used for this CT. COMPARISON: None. FINDINGS: The visualized lung bases are unremarkable. The visualized portions of the heart are within normal limits. Nodular contours of the liver with some scalloped borders (image 44 series 2). No solid hepatic masses. Paraumbilical vein is recanalized extending to the level of the umbilicus. Simple cyst of the hepatic dome. No required imaging follow-up needed given high likelihood of benign nature. Normal gallbladder and extrahepatic biliary system. Normal spleen. Normal pancreas. Normal bilateral adrenal glands. Normal right kidney. Normal left kidney. Paraesophageal varicosities are identified with some veins extending to the left renal vein. Normal small intestine. Relative wall thickening of the sigmoid colon on image 99 of series 2 likely represents incomplete distention/artifact. No adjacent colonic stranding. The appendix is visualized and appears normal. Normal abdominal aorta. Normal inferior vena cava. Normal retroperitoneum. Normal urinary bladder. Normal visualized uterus. Vaginal tampon noted. There is a small umbilical hernia containing fat. However, the recanalized periumbilical vein) extends into the hernia sac (image 74 series 2). Normal osseous structures. CT/Abdomen/Pelvis WITH Contrast IMPRESSION: 1. Nodular contours of the liver suggesting cirrhosis. No hepatic masses. 2. Recannulized periumbilical vein with left upper abdominal/paraesophageal varicose veins, indicating portal hypertension. 3. Very small periumbilical fat-containing hernia but recanalized periumbilical vein and extends into the hernia sac. Electronically Signed: Mayur Wynn MD ([place]) at 15:41 EST ,
== END 2021-06-21 23:59 | disposition home or self-care (01) ==
PROVIDERS: Referring Provider Nurse Practitioner Adult Health; Visit Provider Nurse Practitioner Adult Health
DX: K70.10 Alcoholic hepatitis without ascites (principal)
CPT/HCPCS: 74177; Q9967

== ENCOUNTER 2021-07-26 15:02 | Outpatient (CLI) | payer BC, SELFPAY ==
[2021-07-26 15:23] LABS: Absolute Lymphocyte Count 1.14 X10^3/uL (0.83-4.51); Absolute Neutrophil Count 3.3 X10^3/uL (2.0-7.7); Basophil# 0.04 X10^3/uL; Basophil% 0.8 % (0-1); Eosinophil# 0.05 X10^3/uL; Hematocrit 34.4 % (37-47); Hemoglobin 10.7 g/dL (12.0-15.0); Lymphocyte # 1.14 X10^3/ul (0.83-4.51); Lymphocyte % 22.9 % (19-41); Mean Corp Hgb Conc 31.1 g/dL (32-36); Mean Corpuscular Hgb 24.8 pg (27.0-32.0); Mean Corpuscular Volume 79.6 fL (81-99); Mean Platelet Vol. 10.3 fl (6.2-12.0); NRBC Flagged by Analyzer 0 % (0-5); Neutrophil # 3.33 X10^3/uL (2.7-7.7); Neutrophil % 67.1 % (47-70); Platelet Count 278 K/mm3 (150-450); RBC Distribution Width CV 18.2 % (11.6-14.6); Red Blood Count 4.32 M/mm3 (4.2-5.4)
[2021-07-26 16:01] LABS: International Normalized Ratio 1.3; Prothrombin Time (Protime)PT. 15.2 SECONDS (11.7-14.9)
[2021-07-26 16:19] LABS: ALB/GLOB Ratio 0.8 RATIO (0.9-2.4); AST(SGOT) 257 U/L (15-37); Alanine Aminotransfer ALT/SGPT 134 U/L (13-56); Albumin, Serum 3.5 g/dL (3.2-5.0); Alkaline Phosphatase 193 U/L (45-117); Anion Gap 9 (5-15); BUN 4 mg/dL (7-18); BUN/Creat Ratio 7.8 RATIO (10-20); Bilirubin, Direct 0.61 mg/dL (0.00-0.30); Calcium,Total 8.4 mg/dL (8.5-10.1); Chloride 101 mmol/L (98-107); Creatinine, Serum 0.52 mg/dL (0.55-1.02); EST Glomerular Filtration Rate 139 mL/min (>60); Est Glom Filt Rate - Afr Amer 169 mL/min (>60); Globulin 4.6 g/dL (2.2-4.2); Glucose 112 mg/dL (74-106); Potassium 3.7 mmol/L (3.5-5.1); Protein, Total 8.1 g/dL (6.4-8.2); Sodium Level 136 mmol/L (136-145)
== END 2021-07-26 23:59 | disposition home or self-care (01) ==
LOC: LAB 15:03
PROVIDERS: Visit Provider Nurse Practitioner Adult Health
DX: D64.9 Anemia, unspecified (principal); K74.60 Unspecified cirrhosis of liver
CPT/HCPCS: 36415; 80053; 82248; 85025; 85610

== ENCOUNTER 2021-12-23 09:39 | Day surgery (SDC) | payer BC, SELFPAY ==
--- NOTE | 2021-12-23 09:49 | HP.PCM_ITS ---
History and Physical Date of Admission: 12/23/21 FLOR BOSE, is a 41 F who presents to the office today for Follow up visit. Flor established with this clinic through hospitalization at [facility]. She presented to [facility] ED 05.23.21 with concerns of a GIB with a variceal bleed history. Gastroenterology consulted next day with EGD performed that day. She was discharged 05.25.21. EGD 05.24.21 Joceline-Skinner tear, heater probe; Type 2 isolated gastric varices; portal hypertensive gastropathy. CT abd/pel 06.21.21 nodular contours of liver suggestive of cirrhosis without mass; recannulized periumbilical vein with LUQ/paraesophageal varicose veins, portal HTN; periumbilical hernia. ? Biochemical workup 06.15 without autoimmune etiology. HIV preliminary reactive, HIV differentiation non-reactive. CRP 8.02. Hgb 9.0, hematocrit 29.3, retic count 3.68, iron 25, TIBC WNL 423. MELD: 07.26.21 11 Plan last visit 07.26.21: Cirrhosis, anemia, former consumption of alcohol ? alcoholic cirrhosis. Get liver biopsy, continue coreg. Reports that she did relapse from alcohol cessation. But has stopped again approximately three weeks ago. Difficulty sleeping r/t restless legs keeping her awake; sleep is also disturbed where she sleeps for a short period of time and then be awake for a period of time. She does work awkward hours which she feels contributes to sleep disturbance. Denies itching, brain fog, jaundice, balance issues, disturbance of daily activities. ROS Const Constitutional: No anorexia, fatigue, fever(s), weight change or sleep problems Eyes Eyes: No change in vision ENT ENT: No abnormal hearing, difficulty swallowing, mouth lesions, tongue swelling or throat swelling Resp Respiratory: No cough or shortness of breath Cardio Cardiology: No chest pain at rest, chest pain with exertion, shortness of breath or dyspnea on exertion Gastro GI: No difficulty swallowing Genitourinary-Female: No difficulty urinating or burning urination Musc Musculoskeletal: No joint pain, joint swelling, muscle weakness or decreased muscle mass Skin Skin: No hair loss in leg, yellowing of the eye, itchy eyes, rash, skin ulcer or skin swelling Neuro Neurology: No abnormal hearing, abnormal movements, confusion, unsteady gait/balance or memory loss Psych Psychiatric: No anxiety, No confusion and No memory loss Endo Endocrine: No fatigue or weight change Aller/Imm Allergy/Immunologic: No itchy eyes, throat swelling or tongue swelling Wil/Lymp Hematologic/Lymphatic: No easy bleeding, easy bruising or enlarged lymph nodes Exam Const General: cooperative and comfortable Nutritional Appearance: average body habitus and well nourished [facility] Head: normal to inspection Ears: hearing grossly normal bilaterally Nose: external nose normal Face and sinus: normal facial exam Mouth: oral mucosae normal Throat: posterior oropharynx normal Eyes General: appearance normal, both eyes and all related structures Neck Neck: normal visual inspection Chest Chest palpation & inspection: normal inspection of the chest and normal palpation of entire chest wall Resp Effort & Inspection: normal respiratory effort Auscultation: Bilateral: Clear to Auscultation Cardio Palpation: normal PMI Rate: regular rate Rhythm: regular rhythm GI Inspection: normal to inspection Auscultation: normal bowel sounds Percussion: normal to percussion Palpation: no hepatosplenomegaly Skin General: no rashes or lesions noted Neuro General: patient alert Extrem General: normal to inspection Psych Affect: normal affect Quality Reporting Tobacco Screening ([facility] 138) Smoking Status: Current every day smoker Assessment and Plan Assessment and Plan (1) Cirrhosis: ?Status:?Acute ? ? ? Orders:?Orders: ? Albumin, Serum Today ? ? ? Comprehensive Metabolic Profil Today ? ? ? CRP Today ? ? ? LDH Today ? ? ? Prothrombin Time w/INR Today ? ? ? CBC W/Diff, Automated Today ? ? ? Erythrocyte Sed Rate Today ? ? ? Ammonia Today ?Plan - Dr. Rice Friend, DO: Her current meld is 11.? She is not having any signs of decompensation at this time.? She has not shown any signs of GI bleed, ascites, encephalopathy or jaundice.? We went over the natural history of cirrhosis.? I explained to her how we can monitor her meld every 3 months and encourage 3 bowel moods per day with lactulose therapy.? We also encourage Xifaxan therapy 550 mg twice a day. (2) Anemia: ?Status:?Acute ?Plan - Dr. Rice Friend, DO: I believe that her anemia was secondary to mild and portal gastropathy.? She was also discovered to have gastric varices.? We will continue to monitor her iron studies and hemoglobin.. (3) Gastric varices: ?Status:?Acute ?Plan - Dr. Rice Friend, DO: Toxic possibly a TIPS procedure in the future.? She does not want to have any surgical procedures at this time or any evaluation for transplant due to her active drinking.? She says she has not drank in about 2 weeks and would like to hold suppressed ability to drink. (4) Encephalopathy: ?Status:?Acute ?Plan - Dr. Rice Friend, DO: She is not showing any signs at this time hepatic encephalopathy.? I did encourage lactulose therapy.? We will set ammonia level along with.? I will also give her a short course of alprazolam therapy along with Cymbalta to take scheduled for prophylaxis.? Alprazolam will be for only acute anxiety associated with alcohol at a very low dose of 0.5 mg. Plan Details Other Medications: ?New: ? lactulose ?? Take 1-3 times a day 15 mL? PO DAILY 600 mL 11RF ? ? ? folic acid 1 mg? PO DAILY 30 tabs 11RF ? ? ? duloxetine (Cymbalta) 30 mg? PO DAILY 30 caps 11RF ?Refilled: ? pantoprazole 40 mg? PO QAM 90 tabs 3RF ? ? ? carvedilol 12.5 mg? PO BID 60 tabs 11RF ? ? I have re-examined the patient. There are no clinical changes since date of exam.
[2021-12-23 10:06] VITALS: BP 127/86; PULSE 83; RESP 16; TEMP 37.3; O2SAT 96; BMI 32.5
[2021-12-23] MEDS: Lactated Ringers 1,000 ML 15 ML IV (10:19)
[2021-12-23 11:41] VITALS: BP 127/86; BP 90/55; PULSE 87; RESP 16; TEMP 37.9; O2SAT 95
--- NOTE | 2021-12-23 11:44 | OP.EGD_ITS ---
Patient Name: Flor El Procedure Date: 12/23/2021 11:24 AM Date of : 1980 Age: 41 Procedure: Upper GI endoscopy Indications: Cirrhosis with UGI bleeding rule out esophageal varices Providers: Dwayne Ryder DO Medicines: Monitored Anesthesia Care Patient Profile: This is a 41 year old female. Refer to note in patient chart for documentation of history and physical. Patient has symptoms of chronic heartburn, chronic nausea and chronic vomiting. Complications: No immediate complications. Procedure: Pre-Anesthesia Assessment: - Prior to the procedure, a History and Physical was performed, and patient medications and allergies were reviewed. The patient is competent. The risks and benefits of the procedure and the sedation options and risks were discussed with the patient. All questions were answered and informed consent was obtained. Patient identification and proposed procedure were verified by the physician in the pre-procedure area. Mental Status Examination: alert and oriented. Airway Examination: normal oropharyngeal airway and neck mobility. Respiratory Examination: clear to auscultation. CV Examination: normal. Prophylactic Antibiotics: The patient does not require prophylactic antibiotics. Prior Anticoagulants: The patient has taken no previous anticoagulant or antiplatelet agents. ASA Grade Assessment: II - A patient with mild systemic disease. After reviewing the risks and benefits, the patient was deemed in satisfactory condition to undergo the procedure. The anesthesia plan was to use moderate sedation / analgesia (conscious sedation). Immediately prior to administration of medications, the patient was re-assessed for adequacy to receive sedatives. The heart rate, respiratory rate, oxygen saturations, blood pressure, adequacy of pulmonary ventilation, and response to care were monitored throughout the procedure. The physical status of the patient was re-assessed after the procedure. After obtaining informed consent, the endoscope was passed under direct vision. Throughout the procedure, the patient's blood pressure, pulse, and oxygen saturations were monitored continuously. The gastroscope was introduced through the mouth, and advanced to the second part of duodenum. The upper GI endoscopy was accomplished without difficulty. The patient tolerated the procedure well. Scope In: 11:32:45 AM Scope Out: 11:34:26 AM Total Procedure Duration Time 0 hours 1 minute 41 seconds Findings: Small (< 5 mm) varices were found in the lower third of the esophagus. They were 5 mm in largest diameter. Type 1 gastroesophageal varices (GOV1, esophageal varices which extend along the lesser curvature) with no bleeding were found in the gastric fundus. There were no stigmata of recent bleeding. They were 5 mm in largest diameter. The first portion of the duodenum was normal. Impression: - Small (< 5 mm) esophageal varices. - Type 1 gastroesophageal varices (GOV1, esophageal varices which extend along the lesser curvature), without bleeding. - Normal first portion of the duodenum. - No specimens collected. Recommendation: - Discharge patient to home. - Resume previous diet. - Continue present medications. Procedure Code(s): --- Professional --- 17485, Esophagogastroduodenoscopy, flexible, transoral; diagnostic, including collection of specimen(s) by brushing or washing, when performed (separate procedure) CPT copyright 2017 [employer] [place] [employer]. All rights reserved. The codes documented in this report are preliminary and upon printing film stripper review may be revised to meet current compliance requirements. Dwayne Ryder DO 12/23/2021 11:43:49 AM This report has been signed electronically. Number of Addenda: 1 Note Initiated On: 12/23/2021 11:24 AM Addendum Number: 1 Addendum Date: 01/28/2022 6:18:35 AM MAC was used as sedation for this procedure. Dwayne Ryder DO 01/28/2022 6:18:43 AM This report has been signed electronically.
--- NOTE | 2021-12-23 11:44 | OP.CCLET_ITS ---
01/28/2022 No Primary Care Physician Re : Upper GI endoscopy procedure for Flor El Dear Care Physician This procedure was performed on December. My impressions and recommendations are as follows: Impressions : - Small (< 5 mm) esophageal varices. - Type 1 gastroesophageal varices (GOV1, esophageal varices which extend along the lesser curvature), without bleeding. - Normal first portion of the duodenum. - No specimens collected. Recommendations : - Discharge patient to home. - Resume previous diet. - Continue present medications. My findings are described in the full procedure note, which is enclosed. If I can be of further assistance, please feel free to contact me at . Sincerely, Dwayne Ryder, 12/23/2021 11:43:49 AM This report has been signed electronically.
[2021-12-23 11:45] VITALS: BP 101/66; BP 127/86; PULSE 83; RESP 16; O2SAT 93
[2021-12-23 11:50] VITALS: BP 108/76; BP 127/86; PULSE 81; RESP 16; O2SAT 93
[2021-12-23 11:55] VITALS: BP 101/77; BP 127/86; PULSE 80; RESP 16; TEMP 38.1; O2SAT 95
== END 2021-12-23 12:25 | disposition home or self-care (01) ==
LOC: EN 09:42 → AC 09:44
PROVIDERS: Visit Provider Internal Medicine Gastroenterology
PROC: 0DJ08ZZ Inspection of Upper Intestinal Tract, Via Natural or Artificial Opening Endoscopic (ICD-10-PCS; CPT 43235; principal; 2021-12-23 10:55)
DX: I85.00 Esophageal varices without bleeding (principal); K74.60 Unspecified cirrhosis of liver; F17.200 Nicotine dependence, unspecified, uncomplicated; D64.9 Anemia, unspecified; I10 Essential (primary) hypertension; F41.9 Anxiety disorder, unspecified; F32.A Depression, unspecified; E61.1 Iron deficiency; Z79.899 Other long term (current) drug therapy
CPT/HCPCS: 43235; J7120; J2405

== ENCOUNTER → 2022-01-06 | Outpatient (CLI) | payer BC, SELFPAY ==
[2022-01-06 15:32] LABS: Absolute Lymphocyte Count 0.81 X10^3/uL (0.83-4.51); Absolute Neutrophil Count 3.3 X10^3/uL (2.0-7.7); Basophil# 0.02 X10^3/uL; Basophil% 0.4 % (0-1); Eosinophil# 0.07 X10^3/uL; Eosinophils% 1.5 % (0-5); Hemoglobin 9.4 g/dL (12.0-15.0); Lymphocyte # 0.81 X10^3/ul (0.83-4.51); Lymphocyte % 17.6 % (19-41); Mean Corp Hgb Conc 31.3 g/dL (32-36); Mean Corpuscular Hgb 24.6 pg (27.0-32.0); Mean Corpuscular Volume 78.5 fL (81-99); Mean Platelet Vol. 10.1 fl (6.2-12.0); Monocyte# 0.39 X10^3/uL; Monocyte% 8.5 % (0-10); NRBC Flagged by Analyzer 0 % (0-5); Neutrophil # 3.29 X10^3/uL (2.7-7.7); Neutrophil % 71.8 % (47-70); POSITIVE COUNT YES; POSITIVE MORPHOLOGY YES; RBC Distribution Width CV 21.1 % (11.6-14.6); RBC Distribution Width SD 58.9 fl (35.1-43.9); Red Blood Count 3.82 M/mm3 (4.2-5.4); White Blood Count 4.6 K/mm3 (4.4-11.0)
[2022-01-06 15:44] LABS: International Normalized Ratio 1.3; Prothrombin Time (Protime)PT. 15.6 SECONDS (11.7-14.9)
[2022-01-06 15:45] LABS: Partial Thromboplast Time 37.7 Seconds (24.1-36.2)
[2022-01-06 15:58] LABS: ALB/GLOB Ratio 0.6 RATIO (0.9-2.4); AST(SGOT) 326 U/L (15-37); Alanine Aminotransfer ALT/SGPT 65 U/L (13-56); Albumin, Serum 3.2 g/dL (3.2-5.0); Alkaline Phosphatase 211 U/L (45-117); Anion Gap 9 (5-15); BUN 3 mg/dL (7-18); BUN/Creat Ratio 5.7 RATIO (10-20); Calcium,Total 8.3 mg/dL (8.5-10.1); Chloride 98 mmol/L (98-107); Creatinine, Serum 0.52 mg/dL (0.55-1.02); EST Glomerular Filtration Rate 136 mL/min (>60); Est Glom Filt Rate - Afr Amer 165 mL/min (>60); Globulin 5.2 g/dL (2.2-4.2); Glucose 114 mg/dL (74-106); Potassium 3.4 mmol/L (3.5-5.1); Protein, Total 8.4 g/dL (6.4-8.2); Sodium Level 135 mmol/L (136-145)
[2022-01-06 16:04] LABS: Differential Comment SCANNED; Differential Indicated SCAN CRITERIA MET
[2022-01-06 16:05] LABS: Platelet Estimate ADEQUATE (ADEQ)
[2022-01-06 16:22] LABS: HIV - WCH Non-Reactive (Nonreactive)
[2022-01-10 14:20] LABS: HIV-1 RNA by PCR, Quant. < 20 copies/mL (.)
[2022-01-11 15:08] LABS: Endomysial Antibody IgA Negative (Negative); Immunoglobulin A 542 mg/dL (87-352); t-Transglutaminase IgA <2 U/mL (0-3)
== END | disposition home or self-care (01) ==
PROVIDERS: Visit Provider Internal Medicine Gastroenterology
DX: K74.60 Unspecified cirrhosis of liver (principal)
CPT/HCPCS: 36415; 80053; 82784; 83516; 85025; 85610; 85730; 86255; 86703; 87536

== ENCOUNTER 2022-05-06 00:33 | Inpatient (IN) | payer BC, SELFPAY ==
[2022-05-06] VITALS (9 sets, daily range): BP systolic 125–157; BP diastolic 81–102; PULSE 88–98; RESP 18; TEMP 36.6–37; O2SAT 94–99; BMI 32.5; BMI 31.7
--- NOTE | 2022-05-06 00:56 | RAD_ITS ---
STUDY: X-RAY CHEST REASON FOR EXAM: Female, 41 years old. Cough. TECHNIQUE: PA and lateral COMPARISON: None. FINDINGS: No apparent pneumothorax, pneumonia, pleural effusion, or edema. Mild scarring lung apices. Cardiac silhouette, mo and mediastinal contours are within normal limits. No acute osseous abnormality. No evidence of free air under the diaphragm. RAD/Chest PA and Lateral IMPRESSION: No acute findings. Electronically Signed: Main Luu MD at 1:50 EST Reading Location ID and State: [address] [place] Tel , Service support ,
--- NOTE | 2022-05-06 00:59 | HP.PCM.HOS_ITS ---
HPI - General General Date of Service: 05/06/22 Chief Complaint: acute alcohol withdrawal HPI Narrative Flor El, is a 41 F with a PMH as outlined who presents via the ED with a complaint of acute alcohol withdrawal. He says she has been drinking heavily since 2017 says she drinks too much she cannot quantify how much she drinks. She usually drinks vodka. She last drank at around 6 PM on the day of presentation. She said she was tired of drinking so much I realize she needed help so she came into the ED. She denied any onset of tremors, shakes, nausea vomiting fever chills. Review of symptoms otherwise negative. He denies any IV drug use but admitted to smoking marijuana a few weeks ago. She does smoke cigarettes. She is never been through detox before. Review of stems otherwise negative. Vitals in the ED were blood pressure 153/99, pulse rate of 98 and respiratory rate of 18. Temperature was 97.9 Fahrenheit and she was saturating at 96% on room air. CBC was remarkable for hemoglobin of 9.3 and platelets of 103. Chemistry was significant for potassium of 3.4 and creatinine of 0.51 as well as total bilirubin of 2.5 and AST of 210, ALT of 35 and ALP of 200. Urinalysis showed 30 mg per DL of protein but showed evidence of UTI. Urine tox was negative and serum alcohol level was 393. Chest x-ray showed no acute cardiopulmonary findings. She has been admitted to managed for acute alcohol withdrawal. [facility] Medical History Alcohol abuse Anxiety Depression Hypertension Ulcer Home Medications carvedilol 12.5 mg tablet 12.5 mg PO BID 05/06/22 [History Last Taken Unknown] pantoprazole 40 mg tablet,delayed release 40 mg PO DAILY 05/06/22 [History Last Taken Unknown] Allergy/AdvReac Type Severity Reaction Status Date / Time phenobarbital Allergy PT UNSURE Verified 05/06/22 00:38 OF REACTION Social History Smoking Status: Current every day smoker tobacco type: cigarettes ROS Constitutional Constitutional: Denies anorexia, chills, fatigue, fever(s), malaise or weakness Eyes Eyes: Denies change in vision ENT HEENT: Denies dysphagia, headache(s) or sore throat Cardiovascular Cardiovascular: Denies chest pain, dyspnea on exertion, edema, lightheadedness, orthopnea, palpitations, paroxysmal nocturnal dyspnea or syncope Respiratory/Chest Respiratory/Chest: Denies cough, dyspnea, shortness of breath at rest or shortness of breath with exertion Gastrointestinal Gastrointestinal: Denies abdominal pain, constipation, diarrhea, hematochezia, nausea or vomiting Genitourinary Genitourinary: Denies burning urination, dysuria or urinary urgency Neurologic Neurologic: Denies confusion, disequilibrium, dizziness, focal weakness, headache(s), numbness, seizures, syncope or tingling Psychiatric Psychiatric: Denies anxiety or depression Endocrine Endocrinology: Denies change in body appearance Vital Signs Vital Signs Vital Signs: 05/06/22 00:35 Temperature 97.9 F Temperature Source Oral Pulse Rate 98 Respiratory Rate 18 Blood Pressure 153/99 H Blood Pressure Mean 117 Pulse Ox 96 Oxygen Delivery Method Room Air Weight Weight: 196 lb Body Mass Index (BMI) 32.5 Physical Exam Const alert, oriented x3 and no apparent distress Constitutional Narrative: obese General Appearance: cooperative HEENT normocephalic, head/scalp atraumatic, hearing grossly normal bilaterally and moist oral mucous membranes HEENT Narrative: jaundiced sclera Mouth: oral and palatal mucosa normal Eyes PERRL and EOMs intact bilaterally Neck no lymphadenopathy, supple and no JVD Resp normal respiratory effort, no retractions, no use of accessory muscles and clear to auscultation bilaterally Cardio regular rate, regular rhythm, S1 normal heart sound, S2 normal heart sound and no murmurs GI normal to inspection, nondistended, normoactive bowel sounds, soft to palpation, non-tender and non-distended Extremity normal to inspection, full ROM and no clubbing, cyanosis or edema Neuro oriented x3, CN's II-XII intact bilaterally and moves all extremities Sensorium / Orientation: awake and alert Psych affect normal Results Lab / Micro Data Result Diagrams: 05/06/22 01:00 05/06/22 01:00 Assessment & Plan Assessment/Plan (1) Alcohol use disorder: (2) Hyperbilirubinemia: PLAN: Plan #Alcohol use disorder * admit to med surg * says her last drink was ~ 6pm. She drinks vodka and says she drinks almost like she does not give you to help quantify how much she drinks. * Serum alcohol levels were > 300. * Started on alcohol withdrawal protocol with phenobarbital. CIWA score. * P.o. thiamine folic acid and multivitamins. * Consult [facility] to help with outpatient rehab planning #Elevated liver enzymes * total bilirubin is elevated at 2.5, and AST and ALP are elevated. AST/ALT ratio is >2:1 * this is likely due t alcohol * will check liver ultrasound and hepatitis panel * #Hypertension; on carvedilol # Nicotine dependence: * counseled to quit. Says she doesnt even smoke one pack per day. * nicotine patch 21mg daily * DVT prophylaxis; low risk, encourage to ambulate. Charges/Coding Visit Charges Inpatient E&M: 74932 Init Hosp L3
[2022-05-06 01:11] LABS: Absolute Lymphocyte Count 2.15 X10^3/uL (0.83-4.51); Absolute Neutrophil Count 5.4 X10^3/uL (2.0-7.7); Basophil# 0.06 X10^3/uL; Basophil% 0.7 % (0-1); Eosinophil# 0.08 X10^3/uL; Hemoglobin 9.3 g/dL (12.0-15.0); Lymphocyte # 2.15 X10^3/ul (0.83-4.51); Lymphocyte % 26.1 % (19-41); Mean Corp Hgb Conc 32.1 g/dL (32-36); Mean Corpuscular Hgb 27.7 pg (27.0-32.0); Mean Corpuscular Volume 86.3 fL (81-99); Mean Platelet Vol. 9.4 fl (6.2-12.0); Monocyte# 0.54 X10^3/uL; Monocyte% 6.6 % (0-10); NRBC Flagged by Analyzer 0 % (0-5); Neutrophil # 5.38 X10^3/uL (2.7-7.7); Neutrophil % 65.2 % (47-70); POSITIVE MORPHOLOGY YES; Platelet Count 103 K/mm3 (150-450); RBC Distribution Width CV 24.3 % (11.6-14.6); RBC Distribution Width SD 77.5 fl (35.1-43.9); Red Blood Count 3.36 M/mm3 (4.2-5.4); White Blood Count 8.2 K/mm3 (4.4-11.0)
--- NOTE | 2022-05-06 01:11 | EX.ED.SAOD ---
HPI History of Present Illness Chief Complaint: Substance Abuse Informant: patient Narrative Narrative: Patient is a 41-year-old female with history of alcohol abuse, cirrhosis of the liver as well as prior variceal bleeding (about 2 years ago treated at [facility] in [place]). She follows with Dr. Ryder. She is presenting today for alcohol detox. Patient states she drinks everything she can. She states she drinks at least 1/5 of liquor a day. She drank a bottle of vodka today. Her last drink was at 6 PM. She smokes tobacco regularly and intermittently uses marijuana but denies any other drug use. She states the last time she was detoxed was when she was admitted medically for GI bleed but has never been through voluntary alcohol detox. Patient know she had COVID a week ago. She denies any other symptoms at this time including black or blood in her stool, vomiting or abdominal pain. No fever. No difficulty breathing. Still has a lingering cough. No other complaints at this time. [facility] Medical History Alcohol abuse Anxiety Depression Hypertension Ulcer Home Medications carvedilol 12.5 mg tablet 12.5 mg PO BID 05/06/22 [History Last Taken Unknown] pantoprazole 40 mg tablet,delayed release 40 mg PO DAILY 05/06/22 [History Last Taken Unknown] Allergy/AdvReac Type Severity Reaction Status Date / Time phenobarbital Allergy PT UNSURE Verified 05/06/22 00:38 OF REACTION Social History Smoking Status: Current every day smoker tobacco type: cigarettes ROS ROS ED Constitutional Constitutional ED: Denies chills or fever(s) Cardiovascular Cardiovascular: Denies chest pain or palpitations Respiratory/Chest Respiratory/Chest: Reports cough Gastrointestinal Gastrointestinal: Denies abdominal pain, melena, nausea or vomiting Genitourinary Genitourinary ED: Denies dysuria Musculoskeletal Musculoskeletal: Denies arthralgias or myalgias Neurologic Neurologic: Denies headache(s) Psychiatric Psychiatric: Reports other Details: Alcohol abuse ; Denies anxiety EXAM Physical Exam Const Vital Signs: 05/06/22 00:35 Temperature 97.9 F Temperature Source Oral Pulse Rate 98 Respiratory Rate 18 Blood Pressure 153/99 H Blood Pressure Mean 117 Pulse Ox 96 Oxygen Delivery Method Room Air MDM MDM MDM Narrative Medical decision making narrative: Patient is evaluated for alcoholism and request for alcohol detox. Currently I do not think she is actively withdrawing. She is have a history of phenobarbital allergy when she had it as a child for seizure. She states her lips swelled up about 2 weeks after having the medicine. Patient will be medically cleared and I will check a chest x-ray as well given her recent COVID as well as continued cough. Will be admitted for alcohol detox. Patient informed of rules and expectations associated with inpatient detox here. Patient's alcohol is significantly elevated. Is admitted to [facility]. Does have anemia as well as mild thrombocytopenia but no signs of active bleeding at this time. Lab Data Labs: Laboratory Results - last 24 hr 05/06/22 05/06/22 05/06/22 01:00 01:00 01:00 WBC 8.2 RBC 3.36 L Hgb 9.3 L Hct 29.0 L MCV 86.3 MCH 27.7 MCHC 32.1 RDW Std Deviation 77.5 H RDW Coeff of [place] 24.3 H Plt Count 103 L MPV 9.4 Immature Gran % (Auto) 0.400 Neut % (Auto) 65.2 Lymph % (Auto) 26.1 [place] % (Auto) 6.6 Eos % (Auto) 1.0 Baso % (Auto) 0.7 Absolute Neuts (auto) 5.4 Absolute Lymphs (auto) 2.15 Nucleated RBC % 0 Anisocytosis 2+ Sodium 143 Potassium 3.4 L Chloride 109 H Carbon Dioxide 28.0 Anion Gap 6 BUN 4 L Creatinine 0.51 L Estim Creat Clear Calc 130.62 Est GFR (MDRD) Af Amer 169 Est GFR (MDRD) Non-Af 140 BUN/Creatinine Ratio 7.8 L Glucose 106 Calcium 7.9 L Total Bilirubin 2.50 H AST 210 H ALT 35 Alkaline Phosphatase 201 H Total Protein 8.4 H Albumin 3.0 L Globulin 5.4 H Albumin/Globulin Ratio 0.6 L Urine Color Urine Clarity Urine pH Ur Specific [place] Urine Protein Urine Glucose (UA) Urine Ketones Urine Occult Blood Urine Nitrite Urine Bilirubin Urine Urobilinogen Ur Leukocyte Esterase Urine RBC Urine WBC Ur Squamous Epith Cells Amorphous Sediment Urine Bacteria Urine Mucus Urine Test Urine Opiates Screen Urine Methadone Screen Ur Barbiturates Screen Ur Phencyclidine Scrn Ur Amphetamines Screen MDMA (Ecstasy) Screen U Benzodiazepines Scrn Urine Cocaine Screen U Cannabinoids Screen Ur Drug Screen Comment Ethyl Alcohol 393.0 H* 05/06/22 05/06/22 01:00 01:00 WBC RBC Hgb Hct MCV MCH MCHC RDW Std Deviation RDW Coeff of [place] Plt Count MPV Immature Gran % (Auto) Neut % (Auto) Lymph % (Auto) [place] % (Auto) Eos % (Auto) Baso % (Auto) Absolute Neuts (auto) Absolute Lymphs (auto) Nucleated RBC % Anisocytosis Sodium Potassium Chloride Carbon Dioxide Anion Gap BUN Creatinine Estim Creat Clear Calc Est GFR (MDRD) Af Amer Est GFR (MDRD) Non-Af BUN/Creatinine Ratio Glucose Calcium Total Bilirubin AST ALT Alkaline Phosphatase Total Protein Albumin Globulin Albumin/Globulin Ratio Urine Color Yellow Urine Clarity Clear Urine pH 8.0 Ur Specific [place] 1.010 Urine Protein 30 H Urine Glucose (UA) Normal Urine Ketones Negative Urine Occult Blood Negative Urine Nitrite Negative Urine Bilirubin Negative Urine Urobilinogen 1 H Ur Leukocyte Esterase Negative Urine RBC 0 SEEN Urine WBC 0 SEEN Ur Squamous Epith Cells 0 SEEN Amorphous Sediment RARE Urine Bacteria RARE Urine Mucus 0 SEEN Urine Test Negative Urine Opiates Screen NEGATIVE Urine Methadone Screen NEGATIVE Ur Barbiturates Screen NEGATIVE Ur Phencyclidine Scrn NEGATIVE Ur Amphetamines Screen NEGATIVE MDMA (Ecstasy) Screen NEGATIVE U Benzodiazepines Scrn NEGATIVE Urine Cocaine Screen NEGATIVE U Cannabinoids Screen NEGATIVE Ur Drug Screen Comment Ethyl Alcohol Radiography Diagnostic Testing: Clinical Impression(s) from Imaging Studies Chest X-Ray 05/06/22 00:56 IMPRESSION: No acute findings. Electronically Signed: Main Luu MD at 1:50 EST Reading Location ID and State: [address] [place] [address] Tel , Service support , Discharge Plan Triage Chief Complaint: Substance Abuse ED Provider: Ela Coffman Dx/Rx/DC Orders Clinical Impression: Alcohol use disorder, Anemia, Hx of cirrhosis Prescriptions: No Action carvedilol 12.5 mg Tablet 12.5 mg PO BID Rx Instructions: must administer with a meal/food pantoprazole 40 mg Tablet,Delayed Release (Dr/Ec) 40 mg PO DAILY Primary Care Provider: Care Physician,No Primary Referrals: Care Physician,No Primary [Primary Care Provider] - Disposition Disposition: Acute Care Hospital [facility]
[2022-05-06 01:12] LABS: Differential Indicated SCAN CRITERIA MET
[2022-05-06 01:28] LABS: ALB/GLOB Ratio 0.6 RATIO (0.9-2.4); AST(SGOT) 210 U/L (15-37); Alanine Aminotransfer ALT/SGPT 35 U/L (13-56); Alkaline Phosphatase 201 U/L (45-117); Anion Gap 6 (5-15); BUN 4 mg/dL (7-18); BUN/Creat Ratio 7.8 RATIO (10-20); Calcium,Total 7.9 mg/dL (8.5-10.1); Chloride 109 mmol/L (98-107); Creatinine, Serum 0.51 mg/dL (0.55-1.02); EST Glomerular Filtration Rate 140 mL/min (>60); Est Glom Filt Rate - Afr Amer 169 mL/min (>60); Estimated Creatinine Clearance 130.62 ml/min; Globulin 5.4 g/dL (2.2-4.2); Glucose 106 mg/dL (74-106); Potassium 3.4 mmol/L (3.5-5.1); Protein, Total 8.4 g/dL (6.4-8.2); Sodium Level 143 mmol/L (136-145)
[2022-05-06 01:30] LABS: Mucous, Urine 0 SEEN /hpf (<or=2+); Red Blood Cells-Urine 0 SEEN /hpf (0-5); Squamous Epithelial Cells - UA 0 SEEN /hpf (5-10); White Blood Cells 0 SEEN /hpf (0-5)
[2022-05-06 01:31] LABS: Color, Urine Yellow (Yellow); Glucose, Dipstick Normal (Normal); Ketone-Dipstick Negative (Negative); Leukocyte Esterase-Dipstick Negative /ul (Negative); Nitrite-Dipstick Negative (Negative); Occult Blood-Urine Negative /ul (Negative); Protein-Dipstick 30 mg/dl (Negative); Urine Bilirubin Dipstick Negative (Negative); Urine Clarity Clear (Clear); Urine Urobilinogen 1 mg/dl (Normal)
[2022-05-06 01:40] LABS: Internal QC Validated? YES +Cl - CLEAR BKGD; Pregnancy, Urine Negative Negative
[2022-05-06 01:47] LABS: Amorphous Sediment RARE; Bacteria RARE /hpf (None Seen)
[2022-05-06 01:53] LABS: Amphetamine Urine VISTA NEGATIVE (<1000 ng/mL); Barbiturate Urine VISTA NEGATIVE (< 200 ng/mL); Benzodiazepine Urine VISTA NEGATIVE (< 200 ng/mL); Cocaine Urine VISTA NEGATIVE (< 300 ng/mL); Ecstacy Urine VISTA NEGATIVE (< 500 ng/mL); Methadone Urine VISTA NEGATIVE (< 300 ng/mL); PCP Urine VISTA NEGATIVE (< 25 ng/mL); THC Urine VISTA NEGATIVE (< 50 ng/mL); Vista UDS pH Range 7
[2022-05-06 02:01] LABS: Anisocytosis 2+
[2022-05-06] MEDS: LORazepam 1 MG Tablet 0.5 MG PO ×6 (03:51→22:48)
--- NOTE | 2022-05-06 05:55 | US_ITS ---
STUDY: ABDOMINAL ULTRASOUND - RIGHT UPPER QUADRANT REASON FOR VISIT: Female, 41 years old elevated liver enzymes TECHNIQUE: Ultrasound evaluation of the right upper quadrant was performed with real-time and static rashid-scale imaging. TECHNICAL QUALITY: Limited. Examination limited due to the patient?s condition. COMPARISON: None. FINDINGS: Liver: The liver is enlarged and measures 21 cm. There is increased echogenicity consistent with fatty infiltration. The bile ducts are within normal limits. There is hepatic color flow. The direction of portal flow is hepatopetal. There is no demonstrated mass lesion. Gallbladder: There is a distended gallbladder. The gallbladder wall measures 1.9 mm. There is a negative sonographic Ugalde''s sign. There is no pericholecystic fluid. There are no gallstones. Common Bile Duct (C.B.D.): The common bile duct measures 6.4 mm. Pancreas: Normal size of the head, body and tail of the pancreas. There is normal echogenicity of the pancreas. There is no demonstrated pancreatic mass or cyst. Right Kidney: Normal size of the right kidney. The right kidney measures 12.4 cm x 6.2 cm x 5.8 cm. Normal renal cortex. The right cortex measures 1.5 cm. There is no demonstrated renal mass or cyst. There is no right hydronephrosis. US/Liver IMPRESSION: Hepatomegaly and fatty infiltration of the liver. Distended gallbladder lumen. Electronically Signed: Inderjit Sigala MD at 13:47 EST ,
--- NOTE | 2022-05-06 06:47 | EX.EMERGENCY ---
EMERGENCY DOCUMENTATION INITIATED: Date: 04/20/22 Time: 0900 Emergency documentation initiated 05/06/22 @ 0400
[2022-05-06 07:51] LABS: ALB/GLOB Ratio 0.5 RATIO (0.9-2.4); AST(SGOT) 210 U/L (15-37); Alanine Aminotransfer ALT/SGPT 34 U/L (13-56); Albumin, Serum 2.6 g/dL (3.2-5.0); Alkaline Phosphatase 162 U/L (45-117); Anion Gap 11 (5-15); BUN 4 mg/dL (7-18); BUN/Creat Ratio 9.5 RATIO (10-20); Calcium,Total 7.5 mg/dL (8.5-10.1); Chloride 108 mmol/L (98-107); Creatinine, Serum 0.42 mg/dL (0.55-1.02); EST Glomerular Filtration Rate 176 mL/min (>60); Est Glom Filt Rate - Afr Amer 213 mL/min (>60); Estimated Creatinine Clearance 158.62 ml/min; Glucose 87 mg/dL (74-106); Potassium 3.2 mmol/L (3.5-5.1); Protein, Total 7.6 g/dL (6.4-8.2); Sodium Level 143 mmol/L (136-145)
[2022-05-06 08:37] LABS: Hepatitis B Surface Antibody Non-Reactive; Hepatitis B Surface Antigen Non-Reactive (Nonreactive); Hepatitis C Antibody Non-Reactive (Nonreactive)
--- NOTE | 2022-05-06 09:48 | CASEMGMT ---
Social Work This social work nurse updated treatment navigator, Tiffanie on patient admission to acute hospice setting for [facility]. Tamica Aguila MICROBIOLOGY MANAGER, JOVANNA-S
[2022-05-06] MEDS: Folic Acid 1 MG Tablet PO (11:27)
[2022-05-06] MEDS: Carvedilol 12.5 MG Tablet PO ×2 (11:28→22:48)
[2022-05-06] MEDS: Thiamine Hydrochloride 100 MG Tablet PO (11:28)
[2022-05-06] MEDS: Pantoprazole Sodium 40 MG Tablet PO (11:29)
--- NOTE | 2022-05-06 12:01 | PN.HOSP_ITS ---
Subjective Subjective Follow-up for chronic alcohol use disorder with continued drinking alcohol. Objective Data Objective Data Vital Signs: Vital Signs Temp Pulse Resp BP Pulse Ox O2 Del Method 98.2 F 97 18 125/82 H 98 Room Air 05/06/22 11:41 05/06/22 11:41 05/06/22 11:41 05/06/22 11:41 05/06/22 11:41 05/06/22 11:41 Oxygen Delivery Method Room Air Weight: 190 lb 11.198 oz Body Mass Index (BMI) 31.7 Intake & Output: Intake and Output for Last 24 Hours 05/04/22 05/05/22 05/06/22 23:59 23:59 23:59 Intake Total 500 / 500 Balance 500 / 500 Lab / Micro Data Result Diagrams: 05/06/22 01:00 05/06/22 06:34 Labs: Laboratory Results - last 24 hr 05/06/22 01:00: WBC 8.2, RBC 3.36 L, Hgb 9.3 L, Hct 29.0 L, MCV 86.3, MCH 27.7, MCHC 32.1, RDW Std Deviation 77.5 H, RDW Coeff of [place] 24.3 H, Plt Count 103 L, MPV 9.4, Immature Gran % (Auto) 0.400, Neut % (Auto) 65.2, Lymph % (Auto) 26.1, [place] % (Auto) 6.6, Eos % (Auto) 1.0, Baso % (Auto) 0.7, Absolute Neuts (auto) 5.4, Absolute Lymphs (auto) 2.15, Nucleated RBC % 0, Anisocytosis 2+ 05/06/22 01:00: Sodium 143, Potassium 3.4 L, Chloride 109 H, Carbon Dioxide 28.0, Anion Gap 6, BUN 4 L, Creatinine 0.51 L, Estim Creat Clear Calc 130.62, Es t GFR (MDRD) Af Amer 169, Est GFR (MDRD) Non-Af 140, BUN/Creatinine Ratio 7.8 L, Glucose 106, Calcium 7.9 L, Total Bilirubin 2.50 H, AST 210 H, ALT 35, Alkaline Phosphatase 201 H, Total Protein 8.4 H, Albumin 3.0 L, Globulin 5.4 H, Albumin/Globulin Ratio 0.6 L 05/06/22 01:00: Ethyl Alcohol 393.0 H* 05/06/22 01:00: Urine Opiates Screen NEGATIVE, Urine Methadone Screen NEGATIVE, Ur Barbiturates Screen NEGATIVE, Ur Phencyclidine Scrn NEGATIVE, Ur Amphetamines Screen NEGATIVE, MDMA (Ecstasy) Screen NEGATIVE, U Benzodiazepines Scrn NEGATIVE, Urine Cocaine Screen NEGATIVE, U Cannabinoids Screen NEGATIVE, Ur Drug Screen Comment 05/06/22 01:00: Urine Color Yellow, Urine Clarity Clear, Urine pH 8.0, Ur Specific [place] 1.010, Urine Protein 30 H, Urine Glucose (UA) Normal, Urine Ketones Negative, Urine Occult Blood Negative, Urine Nitrite Negative, Urine Bilirubin Negative, Urine Urobilinogen 1 H, Ur Leukocyte Esterase Negative, Urine RBC 0 SEEN, Urine WBC 0 SEEN, Ur Squamous Epith Cells 0 SEEN, Amorphous Sediment RARE, Urine Bacteria RARE, Urine Mucus 0 SEEN, Urine Test Negative 05/06/22 06:34: Hep Bs Antigen Non-Reactive, Hep Bs Antibody Non-Reactive, Hepatitis C Antibody Non-Reactive 05/06/22 06:34: Sodium 143, Potassium 3.2 L, Chloride 108 H, Carbon Dioxide 24.0, Anion Gap 11, BUN 4 L, Creatinine 0.42 L, Estim Creat Clear Calc 158.62, Est GFR (MDRD) Af Amer 213, Est GFR (MDRD) Non-Af 176, BUN/Creatinine Ratio 9.5 L, Glucose 87, Calcium 7.5 L, Total Bilirubin 2.80 H, AST 210 H, ALT 34, Alkaline Phosphatase 162 H, Total Protein 7.6, Albumin 2.6 L, Globulin 5.0 H, Albumin/Globulin Ratio 0.5 L Radiography Diagnostic Testing: Radiology Impression Chest X-Ray 05/06/22 00:56 IMPRESSION: No acute findings. Electronically Signed: Main Luu MD at 1:50 EST Reading Location ID and State: 1952 [place] Tel , Service support , Physical Exam Narrative Patient is being admitted for acute alcohol withdrawal syndrome. She also had symptoms of cough intermittently with nausea and diarrhea started about 8 days ago and tested positive for COVID-19. On COVID enhanced precaution. General: Alert, Oriented x3, Cooperative HEENT: Atraumatic, PERRLA, EOMI, Normocephalic Oral: Oral mucosa dry. No Gingival or Mucosal Lesions/ Ulcerations Neck: Supple, No JVD, Negative Carotid Bruits Lungs: Air entry diminished in bilateral lung bases. No crepitation/rhonchi Cardiovascular: Regular rate, Regular Rhythm, Normal S1, Normal S2, No murmurs Abdomen: Bowel Sounds Present, Soft, Non Tender, Non-Distended. No palpable ascites. : No renal angle tenderness. No suprapubic tenderness. Extremities: No edema, Capillary Refill Less than 3 Seconds Skin: No rashes, No breakdown Musculoskeletal: No tremors. No Tenderness to Palpation of Joints or Extremities Neurological: Cranial nerves II-XII grossly intact, DTR 2+/4 and Symmetrical, Neuro grossly intact Psych/Mental Status: Normal Affect, Appropriate. Assessment & Plan Assessment/Plan (1) Alcohol use disorder: (2) Hyperbilirubinemia: PLAN: Plan 40-year-old female with history of chronic alcohol use, cirrhosis liver decompensated with variceal bleeding 2 years ago came to ED for alcohol detox. #Acute alcohol withdrawal syndrome with history of chronic alcohol use disorder * admit to med surg * says her last drink was ~ 6pm. She drinks vodka and says she drinks almost like she does not give you to help quantify how much she drinks. * Serum alcohol levels were > 300. * Started on alcohol withdrawal protocol with phenobarbital. CIWA score. * P.o. thiamine folic acid and multivitamins. * Consult [facility] to help with outpatient rehab planning #Acute on chronic alcoholic hepatitis: * total bilirubin is elevated at 2.5, and AST and ALP are elevated. AST/ALT ratio is >2:1 * Liver ultrasound shows hepatomegaly with fatty infiltration. Distended GB lumen. CBD 6.4. Echogenicity of pancreas. No demonstrated pancreatic mass. #Hypertension; on carvedilol # Nicotine dependence: * counseled to quit. Says she doesnt even smoke one pack per day. * nicotine patch 21mg daily DVT prophylaxis; low risk, encourage to ambulate.
--- NOTE | 2022-05-06 13:48 | ADDICTION ---
This technical writer and editor met with PT to conduct ASAM, MSE, AUDIT, DUDIT assessments and to plan for d/c. PT A+Ox4 and participated actively. All assessments completed and placed in PT's chart. PT plans to f/u with Karen in [place] for outpatient treatment services. PT did not indicate a need for transportation post d/c from [facility].
[2022-05-06] MEDS: Gabapentin 300 MG Capsule PO (16:53)
[2022-05-06] MEDS: 0.9% Saline Lock 10 ML Syringe IV (22:48)
[2022-05-06] MEDS: hydrOXYzine PAM 25 MG Capsule 50 MG PO (22:55)
[2022-05-07] VITALS (7 sets, daily range): BP systolic 135–146; BP diastolic 90–106; PULSE 88–90; RESP 18; TEMP 36.4–37.1; O2SAT 94–99
[2022-05-07] MEDS: LORazepam 1 MG Tablet 0.5 MG PO ×6 (03:53→22:51)
[2022-05-07] MEDS: Folic Acid 1 MG Tablet PO (09:28)
[2022-05-07] MEDS: Pantoprazole Sodium 40 MG Tablet PO (09:28)
[2022-05-07] MEDS: Thiamine Hydrochloride 100 MG Tablet PO (09:28)
[2022-05-07] MEDS: Carvedilol 12.5 MG Tablet PO ×2 (09:28→22:51)
--- NOTE | 2022-05-07 15:02 | PN.HOSP_ITS ---
Subjective Subjective Follow-up for acute alcohol withdrawal syndrome. Objective Data Objective Data Vital Signs: Vital Signs Temp Pulse Resp BP Pulse Ox O2 Del Method 97.6 F L 88 18 146/106 H 99 Room Air 05/07/22 08:40 05/07/22 08:40 05/07/22 08:40 05/07/22 08:40 05/07/22 08:40 05/07/22 09:24 Oxygen Delivery Method Room Air Weight: 190 lb 11.198 oz Body Mass Index (BMI) 31.7 Intake & Output: Intake and Output for Last 24 Hours 05/05/22 05/06/22 05/07/22 23:59 23:59 23:59 Intake Total 1400 / 1400 800 / 800 Balance 1400 / 1400 800 / 800 Lab / Micro Data Result Diagrams: 05/06/22 01:00 05/06/22 06:34 Radiography Diagnostic Testing: Radiology Impression Liver Ultrasound 05/06/22 05:55 IMPRESSION: Hepatomegaly and fatty infiltration of the liver. Distended gallbladder lumen. Electronically Signed: Inderjit Sigala MD at 13:47 EST , Physical Exam Narrative Patient is being admitted for acute alcohol withdrawal syndrome. Her symptoms of COVID has much improved and does not need dexamethasone, remdesivir or baricitinib. No nausea or vomiting. Physical exam General: Alert, Oriented x3, Cooperative HEENT: Atraumatic, PERRLA, EOMI, Normocephalic Oral: Oral mucosa dry. No Gingival or Mucosal Lesions/ Ulcerations Neck: Supple, No JVD, Negative Carotid Bruits Lungs: Air entry diminished in bilateral lung bases. No crepitation/rhonchi Cardiovascular: Regular rate, Regular Rhythm, Normal S1, Normal S2, No murmurs Abdomen: Bowel Sounds Present, Soft, Non Tender, Non-Distended. No palpable ascites. : No renal angle tenderness. No suprapubic tenderness. Extremities: No edema, Capillary Refill Less than 3 Seconds Skin: No rashes, No breakdown Musculoskeletal: Mild coarse tremors of hands. No Tenderness to Palpation of Joints or Extremities Neurological: Cranial nerves II-XII grossly intact, DTR 2+/4 and Symmetrical, Neuro grossly intact Psych/Mental Status: Flat affect. Assessment & Plan Assessment/Plan (1) Alcohol use disorder: (2) Hyperbilirubinemia: PLAN: Plan 40-year-old female with history of chronic alcohol use, cirrhosis liver decompensated with variceal bleeding 2 years ago came to ED for alcohol detox. #Acute alcohol withdrawal syndrome with history of chronic alcohol use disorder * admit to med surg * says her last drink was ~ 6pm on 05/05. She drinks vodka heavily. * Serum alcohol levels were > 300. * Started on alcohol withdrawal protocol with phenobarbital. CIWA score. * P.o. thiamine folic acid and multivitamins. * Consult [facility] to help with outpatient rehab planning #Acute on chronic alcoholic hepatitis: * total bilirubin is elevated at 2.5, and AST and ALP are elevated. AST/ALT ratio is >2:1 * Liver ultrasound shows hepatomegaly with fatty infiltration. Distended GB lumen. CBD 6.4. Echogenicity of pancreas. No demonstrated pancreatic mass. COVID-19 infection, recovery: She also had symptoms of cough intermittently with nausea and diarrhea started about 8 days ago prior to admission and tested positive for COVID-19. On COVID enhanced precaution. Probably 1 more day. #Hypertension; on carvedilol # Nicotine dependence: * counseled to quit. Says she doesnt even smoke one pack per day. * nicotine patch 21mg daily DVT prophylaxis; low risk, encourage to ambulate. Charges/Coding Visit Charges Inpatient E&M: 37044 Subs Hosp L2
[2022-05-07] MEDS: traZODone 100 MG Tablet PO (22:51)
[2022-05-07] MEDS: hydrOXYzine PAM 25 MG Capsule 50 MG PO (22:51)
[2022-05-08] MEDS: LORazepam 1 MG Tablet 0.5 MG PO ×5 (03:20→22:40)
[2022-05-08] MEDS: hydrOXYzine PAM 25 MG Capsule 50 MG PO ×2 (03:20→22:39)
[2022-05-08] MEDS: Ondansetron 8 MG Tablet PO (03:20)
[2022-05-08 03:26] VITALS: BP 118/87; PULSE 88; RESP 16; TEMP 37; O2SAT 95
[2022-05-08] MEDS: Carvedilol 12.5 MG Tablet PO ×2 (08:32→22:40)
[2022-05-08] MEDS: Pantoprazole Sodium 40 MG Tablet PO (08:32)
[2022-05-08] MEDS: Folic Acid 1 MG Tablet PO (08:32)
[2022-05-08] MEDS: Thiamine Hydrochloride 100 MG Tablet PO (08:33)
[2022-05-08 08:36] VITALS: BP 105/74; PULSE 87; RESP 18; TEMP 36.9; O2SAT 98
[2022-05-08 08:37] VITALS: BP 105/74; PULSE 88; RESP 16; TEMP 36.9; O2SAT 94
--- NOTE | 2022-05-08 11:15 | PN.HOSP_ITS ---
Subjective Subjective Follow-up for acute alcohol withdrawal syndrome. Patient has coarse tremors all over her body although feels better. Mild anxiety Objective Data Objective Data Vital Signs: Vital Signs Temp Pulse Resp BP Pulse Ox O2 Del Method 98.4 F 88 16 105/74 94 Room Air 05/08/22 08:37 05/08/22 08:37 05/08/22 08:37 05/08/22 08:37 05/08/22 08:37 05/08/22 08:37 Oxygen Delivery Method Room Air Weight: 190 lb 11.198 oz Body Mass Index (BMI) 31.7 Intake & Output: Intake and Output for Last 24 Hours 05/06/22 05/07/22 05/08/22 23:59 23:59 23:59 Intake Total 1400 / 1400 1600 / 1600 Balance 1400 / 1400 1600 / 1600 Lab / Micro Data Result Diagrams: 05/06/22 01:00 05/06/22 06:34 Physical Exam Narrative Patient is being admitted for acute alcohol withdrawal syndrome. Her symptoms of COVID started on 04/28 with mild cough and diarrhea. Symptoms have much improved and does not need dexamethasone, remdesivir or baricitinib. No nausea or vomiting. Patient had 10 days from the onset of symptoms therefore isolation discontinued Physical exam General: Alert, Oriented x3, Cooperative HEENT: Atraumatic, PERRLA, EOMI, Normocephalic Oral: Oral mucosa dry. No Gingival or Mucosal Lesions/ Ulcerations Neck: Supple, No JVD, Negative Carotid Bruits Lungs: Air entry diminished in bilateral lung bases. No crepitation/rhonchi Cardiovascular: Regular rate, Regular Rhythm, Normal S1, Normal S2, No murmurs Abdomen: Bowel Sounds Present, Soft, Non Tender, Non-Distended. No palpable ascites. : No renal angle tenderness. No suprapubic tenderness. Extremities: No edema, Capillary Refill Less than 3 Seconds Skin: No rashes, No breakdown Musculoskeletal: Mild coarse tremors of hands. No Tenderness to Palpation of Joints or Extremities Neurological: Cranial nerves II-XII grossly intact, DTR 2+/4 and Symmetrical, Neuro grossly intact Psych/Mental Status: Flat affect. Weird dreams. Anxiety and restlessness intermittently. Assessment & Plan Assessment/Plan (1) Alcohol use disorder: (2) Hyperbilirubinemia: PLAN: Plan 40-year-old female with history of chronic alcohol use, cirrhosis liver decompensated with variceal bleeding 2 years ago came to ED for alcohol detox. #Acute alcohol withdrawal syndrome with history of chronic alcohol use disorder * admit to med surg * says her last drink was ~ 6pm on 05/05. She drinks vodka heavily. * Serum alcohol levels were > 300. * Started on alcohol withdrawal protocol with phenobarbital. CIWA score. * P.o. thiamine folic acid and multivitamins. * Consult [facility] to help with outpatient rehab planning 05/08: Continue treatment. Symptoms are getting better. No hallucination but nightmares and weird dreams. No seizure #Acute on chronic alcoholic hepatitis: * total bilirubin is elevated at 2.5, and AST and ALP are elevated. AST/ALT ratio is >2:1 * Liver ultrasound shows hepatomegaly with fatty infiltration. Distended GB lumen. CBD 6.4. Echogenicity of pancreas. No demonstrated pancreatic mass. COVID-19 infection, recovery: She also had symptoms of cough intermittently with nausea and diarrhea started about 8 days ago prior to admission and tested positive for COVID-19. On COVID enhanced precaution. Probably 1 more day. 05/08: COVID precaution discontinued patient at 10 days from the onset of symptoms on 04/28. #Hypertension; on carvedilol # Nicotine dependence: * counseled to quit. Says she doesnt even smoke one pack per day. * nicotine patch 21mg daily DVT prophylaxis; low risk, encourage to ambulate. Charges/Coding Visit Charges Inpatient E&M: 36338 Subs Hosp L2
[2022-05-08 15:13] VITALS: BP 108/68; PULSE 91; RESP 18; TEMP 36.8; O2SAT 97
[2022-05-08 22:30] VITALS: BP 115/77; PULSE 93; RESP 16; TEMP 37; O2SAT 95
[2022-05-08] MEDS: traZODone 100 MG Tablet PO (22:39)
[2022-05-09] MEDS: LORazepam 1 MG Tablet 0.5 MG PO (05:35)
[2022-05-09 05:47] VITALS: BP 117/75; PULSE 89; RESP 18; O2SAT 94
[2022-05-09] MEDS: Pantoprazole Sodium 40 MG Tablet PO (07:38)
[2022-05-09] MEDS: Carvedilol 12.5 MG Tablet PO (07:38)
[2022-05-09] MEDS: Thiamine Hydrochloride 100 MG Tablet PO (07:38)
[2022-05-09] MEDS: Folic Acid 1 MG Tablet PO (07:38)
[2022-05-09 09:25] LABS: ALB/GLOB Ratio 0.5 RATIO (0.9-2.4); AST(SGOT) 133 U/L (15-37); Alanine Aminotransfer ALT/SGPT 25 U/L (13-56); Albumin, Serum 2.6 g/dL (3.2-5.0); Alkaline Phosphatase 123 U/L (45-117); Anion Gap 9 (5-15); BUN 6 mg/dL (7-18); BUN/Creat Ratio 9.8 RATIO (10-20); Calcium,Total 8.2 mg/dL (8.5-10.1); Chloride 103 mmol/L (98-107); Creatinine, Serum 0.61 mg/dL (0.55-1.02); EST Glomerular Filtration Rate 114 mL/min (>60); Est Glom Filt Rate - Afr Amer 139 mL/min (>60); Estimated Creatinine Clearance 109.21 ml/min; Globulin 4.8 g/dL (2.2-4.2); Glucose 91 mg/dL (74-106); Potassium 3.4 mmol/L (3.5-5.1); Protein, Total 7.4 g/dL (6.4-8.2); Sodium Level 136 mmol/L (136-145)
[2022-05-09 10:37] VITALS: BP 110/62; PULSE 95; RESP 17; TEMP 36.7; O2SAT 98
--- NOTE | 2022-05-09 10:49 | PCM.PN.HOSP ---
Subjective Subjective Follow-up on acute alcohol withdrawal: Patient was seen and examined. Objective Data Objective Data Vital Signs: Vital Signs Temp Pulse Resp BP Pulse Ox O2 Del Method 98.1 F 95 17 110/62 98 Room Air 05/09/22 10:37 05/09/22 10:37 05/09/22 10:37 05/09/22 10:37 05/09/22 10:37 05/09/22 10:37 Oxygen Delivery Method Room Air Weight: 86.5 kg Body Mass Index (BMI) 31.7 Intake & Output: Intake and Output for Last 24 Hours 05/07/22 05/08/22 05/09/22 23:59 23:59 23:59 Intake Total 1600 / 1600 2100 / 2100 Balance 1600 / 1600 2100 / 2100 Lab / Micro Data Result Diagrams: 05/06/22 01:00 05/09/22 08:44 Labs: Laboratory Results - last 24 hr 05/09/22 08:44: Sodium 136, Potassium 3.4 L, Chloride 103, Carbon Dioxide 24.0, Anion Gap 9, BUN 6 L, Creatinine 0.61, Estim Creat Clear Calc 109.21, Est GFR (MDRD) Af Amer 139, Est GFR (MDRD) Non-Af 114, BUN/Creatinine Ratio 9.8 L, Glucose 91, Calcium 8.2 L, Total Bilirubin 4.10 H, AST 133 H, ALT 25, Alkaline Phosphatase 123 H, Total Protein 7.4, Albumin 2.6 L, Globulin 4.8 H, Albumin/Globulin Ratio 0.5 L
--- NOTE | 2022-05-09 12:28 | PCM.DC.SUM ---
Providers Date of Admission: 05/06/22 Date of Discharge: 05/09/22 Primary Care Physician: Maria Elena Primary Care Phys Reason For Visit: ALCOHOL USE DISORDER Diagnosis Discharge Diagnosis (1) Alcohol use disorder: Status: Acute Code(s): F19.90 - Other psychoactive substance use, unspecified, uncomplicated (2) Hyperbilirubinemia: Status: Acute Code(s): E80.6 - Other disorders of bilirubin metabolism Plan 1. Acute alcohol withdrawal 2. Acute on chronic alcoholic hepatitis 3. Acute COVID-19 infection without hypoxia 4. Hypertension 5. Nicotine dependence, advised to quit, will continue on replacement Medications at Discharge Home Medications amoxicillin 875 mg-potassium clavulanate 125 mg tablet 1 tab PO DAILY ear infection 05/06/22 carvedilol 12.5 mg tablet 12.5 mg PO BID hr 05/06/22 pantoprazole 40 mg tablet,delayed release 40 mg PO DAILY Gerd 05/06/22 Hospital Course Operations None Procedures None Summary of Care Provided Minutes Spent on Discharge: 25 Hospital Course: 41-year-old with past medical history of alcohol abuse who comes in requesting for medical stabilization from acute alcohol withdrawal. Patient admits to drinking heavily, usually vodka. Last drink was 6 PM prior to admission. Her vitals and admitting blood work were unremarkable in the emergency room. Her admitting alcohol level was 393. Patient has had symptoms of COVID-19 infection, tested positive for COVID 8 days prior to admission. She was managed in isolation also on the alcohol withdrawal protocol. There was no acute complaints. No indication for oxygen. On the day of discharge, patient was reexamined. Her CIWA score was 5. She appears slightly tremulous. She was recommended to stay 1 more day and be discharged the next day after further evaluation. Patient however signed out AGAINST MEDICAL ADVICE Physical Exam Narrative Physical exam: General: Alert, Oriented x3, Cooperative, obese HEENT: Atraumatic Oral: Moist Mucosa Neck: Supple Lungs: Clear to auscultation Cardiovascular: HS I+II, regular, no murmurs Abdomen: Bowel Sounds Present, Soft, Non Tender Extremities: No edema Skin: No rashes, No breakdown Neurological: Grossly intact Psych/Mental Status: Appropriate Weight / BMI Weight Weight: 86.5 kg Body Mass Index (BMI) 31.7 ABG / Lab / Microbiology Data Result Diagrams: 05/06/22 01:00 05/09/22 08:44 Laboratory: Laboratory Results - last 24 hr 05/09/22 08:44: Sodium 136, Potassium 3.4 L, Chloride 103, Carbon Dioxide 24.0, Anion Gap 9, BUN 6 L, Creatinine 0.61, Estim Creat Clear Calc 109.21, Est GFR (MDRD) Af Amer 139, Est GFR (MDRD) Non-Af 114, BUN/Creatinine Ratio 9.8 L, Glucose 91, Calcium 8.2 L, Total Bilirubin 4.10 H, AST 133 H, ALT 25, Alkaline Phosphatase 123 H, Total Protein 7.4, Albumin 2.6 L, Globulin 4.8 H, Albumin/Globulin Ratio 0.5 L D/C Instructions Discharge Diet: No restrictions Meaningful Use Info Meaningful Use Diagnoses (Choose all that apply): None applicable Discharge Plan Admission Admit Date/Time: 05/06/22 02:16 Attending Provider: Yolanda Kurtz Primary Care Provider: Care Physician,No Primary Consulting Providers: Lesa Holm ; Chi Rodrigues Instructions Forms: Work / School Excuse Discharge Orders/Prescriptions Prescriptions: No Action carvedilol 12.5 mg Tablet 12.5 mg PO BID Rx Instructions: must administer with a meal/food pantoprazole 40 mg Tablet,Delayed Release (Dr/Ec) 40 mg PO DAILY amoxicillin-pot clavulanate 875-125 mg tablet 1 tab PO DAILY Rx Instructions: started first does Monday 1800 Referrals / Follow Up: Care Physician,No Primary [Primary Care Provider] - Disposition Disposition (needs filled in before D/C Order can be placed): Against Medical Advice Charges/Coding Visit Charges Inpatient E&M: 02042 Disch Hosp
== END 2022-05-09 11:38 | disposition left against medical advice (07) | DRG 894 ==
LOC: ED 02:48 → MS3 02:48
PROVIDERS: Admitting Provider Student in an Organized Health Care Education/Training Program; Emergency Provider Emergency Medicine; Visit Provider Internal Medicine
DX: F10.239 Alcohol dependence with withdrawal, unspecified (principal); E66.9 Obesity, unspecified; K70.30 Alcoholic cirrhosis of liver without ascites; K70.10 Alcoholic hepatitis without ascites; I10 Essential (primary) hypertension; F17.210 Nicotine dependence, cigarettes, uncomplicated; F12.90 Cannabis use, unspecified, uncomplicated; K76.0 Fatty (change of) liver, not elsewhere classified; Y90.8 Blood alcohol level of 240 mg/100 ml or more; Z68.31 Body mass index [BMI] 31.0-31.9, adult; Z71.6 Tobacco abuse counseling; Z53.29 Procedure and treatment not carried out because of patient's decision for other reasons; Z79.899 Other long term (current) drug therapy; Z86.16 Personal history of COVID-19
CPT/HCPCS: 36415; 71046; 76705; 80053; 80307; 81001; 81025; 82077; 85025; 86706; 86803; 87340; 99284; 99406; A4216

== ENCOUNTER → 2023-09-28 | Outpatient (CLI) | payer BC, SELFPAY ==
[2023-09-28 11:49] LABS: Hematocrit 27.4 % (37-47); Mean Corp Hgb Conc 25.5 g/dL (32-36); Mean Corpuscular Hgb 16.1 pg (27.0-32.0); Mean Corpuscular Volume 62.8 fL (81-99); POSITIVE MORPHOLOGY YES; Platelet Count 161 K/mm3 (150-450); RBC Distribution Width CV 21.1 % (11.6-14.6); RBC Distribution Width SD 46.5 fl (35.1-43.9); Red Blood Count 4.36 M/mm3 (4.2-5.4); White Blood Count 3.8 K/mm3 (4.4-11.0)
[2023-09-28 12:07] LABS: Vitamin D,25 Hydroxy 14.2 ng/mL
[2023-09-28 12:08] LABS: Scan Indicated on CBC? Y/N YES- FLAGS NOTED
[2023-09-28 12:15] LABS: ALB/GLOB Ratio 0.9 RATIO (0.9-2.4); AST(SGOT) 26 U/L (15-37); Alanine Aminotransfer ALT/SGPT 28 U/L (13-56); Albumin, Serum 3.1 g/dL (3.2-5.0); Alkaline Phosphatase 152 U/L (45-117); Anion Gap 4 (5-15); BUN 9 mg/dL (7-18); BUN/Creat Ratio 23.9 RATIO (10-20); Calcium,Total 8.3 mg/dL (8.5-10.1); Chloride 112 mmol/L (98-107); Creatinine, Serum 0.38 mg/dL (0.55-1.02); EST Glomerular Filtration Rate 198 mL/min (>60); Est Glom Filt Rate - Afr Amer 240 mL/min (>60); Free T3 2.1 pg/mL (2.18-3.98); Globulin 3.5 g/dL (2.2-4.2); Glucose 108 mg/dL (74-106); Protein, Total 6.6 g/dL (6.4-8.2); Sodium Level 138 mmol/L (136-145); T4 Free Direct 0.77 ng/dL (0.76-1.46); Thyroid Stim Hormone (TSH) 0.68 uIU/mL (0.358-3.74)
[2023-09-28 12:51] LABS: Differential Comment SCANNED
== END | disposition home or self-care (01) ==
LOC: LAB 10:56
PROVIDERS: Referring Provider Psychiatry & Neurology Psychiatry; Visit Provider Psychiatry & Neurology Psychiatry
DX: E03.9 Hypothyroidism, unspecified (principal); D64.9 Anemia, unspecified
CPT/HCPCS: 36415; 80053; 82306; 84439; 84443; 84481; 85027

== ENCOUNTER 2023-10-23 11:22 | Emergency (ER) | payer SELFPAY ==
[2023-10-23 11:23] VITALS: BP 157/105; PULSE 103; RESP 18; TEMP 36.6; O2SAT 99; BMI 24.3
[2023-10-23 12:05] LABS: Absolute Lymphocyte Count 1.27 X10^3/uL (0.83-4.51); Absolute Neutrophil Count 2.5 X10^3/uL (2.0-7.7); Basophil# 0.04 X10^3/uL; Basophil% 0.9 % (0-1); Eosinophil# 0.12 X10^3/uL; Eosinophils% 2.8 % (0-5); Hematocrit 26.4 % (37-47); Lymphocyte # 1.27 X10^3/ul (0.83-4.51); Lymphocyte % 29.8 % (19-41); Mean Corp Hgb Conc 26.5 g/dL (32-36); Mean Corpuscular Hgb 16.3 pg (27.0-32.0); Mean Corpuscular Volume 61.4 fL (81-99); Monocyte# 0.32 X10^3/uL; Monocyte% 7.5 % (0-10); NRBC Flagged by Analyzer 0 % (0-5); Neutrophil % 58.8 % (47-70); POSITIVE MORPHOLOGY YES; Platelet Count 126 K/mm3 (150-450); RBC Distribution Width CV 21.2 % (11.6-14.6); RBC Distribution Width SD 44.7 fl (35.1-43.9); White Blood Count 4.3 K/mm3 (4.4-11.0)
[2023-10-23 12:06] LABS: Differential Indicated SCAN CRITERIA MET
[2023-10-23 12:18] LABS: Internal QC Validated? YES +Cl - CLEAR BKGD; Pregnancy, Serum, hCG Quali. NEGATIVE Negative
[2023-10-23 12:25] LABS: ALB/GLOB Ratio 0.9 RATIO (0.9-2.4); AST(SGOT) 23 U/L (15-37); Alanine Aminotransfer ALT/SGPT 20 U/L (13-56); Albumin, Serum 3.4 g/dL (3.2-5.0); Alkaline Phosphatase 107 U/L (45-117); Anion Gap 9 (5-15); BUN 9 mg/dL (7-18); BUN/Creat Ratio 15.1 RATIO (10-20); Calcium,Total 8.7 mg/dL (8.5-10.1); Chloride 107 mmol/L (98-107); EST Glomerular Filtration Rate 116 mL/min (>60); Est Glom Filt Rate - Afr Amer 141 mL/min (>60); Estimated Creatinine Clearance 108.79 ml/min; Globulin 3.6 g/dL (2.2-4.2); Glucose 94 mg/dL (74-106); International Normalized Ratio 1.3; Lactic Acid 1.8 mmol/L (0.4-1.9); Potassium 2.9 mmol/L (3.5-5.1); Prothrombin Time (Protime)PT. 16.6 SECONDS (11.7-14.9); Sodium Level 137 mmol/L (136-145)
[2023-10-23 12:26] LABS: Partial Thromboplast Time 34.7 Seconds (24.1-36.2)
[2023-10-23 12:41] LABS: Anisocytosis 2+; Differential Comment SCANNED; Polychromasia RARE
[2023-10-23 13:12] LABS: Magnesium 1.8 mg/dL (1.6-2.6)
[2023-10-23 13:23] VITALS: BP 142/80; PULSE 71; RESP 18; O2SAT 97
[2023-10-23] MEDS: Potassium Chloride 10mEq/100mL 10 MEQ/100 ML IV.SOLN. 100 MEQ IV BOLUS ×2 (14:02→15:12)
[2023-10-23] MEDS: Potassium Chloride Oral Soln 20 MEQ/15 ML UDC 40 MEQ PO (14:02)
[2023-10-23 15:00] VITALS: BP 128/92; PULSE 71; RESP 18; O2SAT 98
--- NOTE | 2023-10-23 16:02 | EX.ED.DYSGE1 ---
HPI History of Present Illness Chief Complaint: Abn Labs Informant: patient Narrative Narrative: Patient is a 43-year-old female with history of hypertension, anemia and needs stress of the liver with subsequent gastric varices presenting with anemia on outpatient labs. Patient was sent in by PCP for outpatient labs that showed a hemoglobin of 6.6. Patient states that her psychiatrist had ordered all blood work a month ago routinely and had found her to be anemic. She follow-up with her primary care doctor and have repeat blood work that showed worsening anemia and that is why she was sent to the emergency room. She states has been very fatigued but denies other complaints. Denies any black or blood in her stool. Not on any blood thinners. States he is no longer drinking alcohol. States she still gets her menstrual cycles but they are not abnormally heavy and just normal for her. No other complaints or concerns reported at this time. [facility] Medical History Smoker Alcohol abuse Anxiety Depression Ulcer Hypertension Anxiety Depression Alcohol use Marijuana use Bruising Low iron Easy bruising Restless legs Injury of back Loss of consciousness Injury of head and neck Seizures Smoker Shortness of breath on exertion History of edema Chest pain Encephalopathy Alcoholic hepatitis Substance use HTN (hypertension) Acute GI bleeding Anxiety and depression Gastric varices Home Medications ?Medication ?Instructions ?Recorded ?Last Taken ?Type ferrous sulfate 325 mg (65 mg 325 mg PO DAILY ANEMIA 06/08/21 Unknown History iron) tablet pantoprazole 40 mg tablet,delayed 40 mg PO DAILY GERD 05/06/22 10/22/23 History release folic acid 1 mg tablet 1 mg PO DAILY SUPPLEMENT #72 09/15/23 10/22/23 Rx TABLETS bupropion HCl 150 mg 24 hr tablet, 150 mg PO DAILY DEPRESSION 10/23/23 Unknown History extended release bupropion HCl 300 mg 24 hr tablet, 300 mg PO DAILY DEPRESSION 10/23/23 10/22/23 History extended release escitalopram oxalate 20 mg tablet 20 mg PO DAILY BLOOD PRESSURE 10/23/23 10/22/23 History gabapentin 100 mg capsule 100 mg PO 4X/DAY NEUROPATHY 10/23/23 Unknown History hydrochlorothiazide 12.5 mg tablet 12.5 mg PO DAILY BLOOD PRESSURE 10/23/23 10/22/23 History lisinopril 20 mg tablet 20 mg PO DAILY BLOOD PRESSURE 10/23/23 10/22/23 History potassium chloride 10 mEq 30 meq (3 x 10 mEq) PO DAILY 5 10/23/23 Unknown Rx tablet,extended release days #15 tabs ropinirole 4 mg tablet 4 mg PO QHS PRN RESTLESS LEGS 10/23/23 Unknown History Allergy/AdvReac Type Severity Reaction Status Date / Time phenobarbital Allergy Other Verified 10/23/23 11:24 Surgical History History of esophagogastroduodenoscopy (EGD) Social History 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 [employer] Smoking Status: Current every day smoker tobacco type: cigarettes alcohol intake: current ROS ROS ED Constitutional Constitutional ED: Reports other; Denies chills or fever(s) Cardiovascular Cardiovascular: Denies chest pain Respiratory/Chest Respiratory/Chest: Denies cough Gastrointestinal Gastrointestinal: Denies abdominal pain, melena, nausea or vomiting Musculoskeletal Musculoskeletal: Denies myalgias Integumentary Denies rash Neurologic Neurologic: Denies headache(s) Hematologic/Lymphatic Hematologic/Lymphatic: Denies easy bleeding or easy bruising EXAM Physical Exam Const Vital Signs: 10/23/23 11:23 10/23/23 11:34 10/23/23 13:23 Temperature 98 F Temperature Source Temporal Pulse Rate 103 H 71 Respiratory Rate 18 18 Respiratory Effort Normal Blood Pressure 157/105 H 142/80 H Blood Pressure Mean 122 100 Pulse Ox 99 97 Oxygen Delivery Method Room Air Room Air 10/23/23 15:00 Temperature Temperature Source Pulse Rate 71 Respiratory Rate 18 Respiratory Effort Blood Pressure 128/92 H Blood Pressure Mean 104 Pulse Ox 98 Oxygen Delivery Method Room Air Positive well nourished and well developed General Appearance ED: well developed and NAD HEENT Reports moist mucous membranes Eyes PERRL General Eye ED: Negative for pale conjunctiva Neck supple Chest Wall inspection of chest normal Resp normal respiratory effort and clear to auscultation bilaterally Cardio regular rate and regular rhythm GI normal to inspection, nondistended, normoactive bowel sounds and non-tender Extremity normal to inspection General Extremety ED: Negative for edema or tenderness General Extremity: Negative for edema Neuro oriented x3 Sensorium / Orientation: alert Motor Exam: Negative for general weakness Psych mental status grossly normal Skin no rashes or lesions noted and no wounds MDM MDM MDM Narrative Medical decision making narrative: Patient is evaluated for anemia on outpatient labs. Hemoglobin is rechecked here and it is 7.1. This is stable and unchanged from the last month. Her anemia does appear to be microcytic which is most consistent with iron deficiency. Her platelets are mildly low at 126 however patient does have history of cirrhosis of the liver. In addition she is mildly leukopenic with a white blood cell count of 4.3. In addition her potassium is significantly low at 2.9. Magnesium was added on which is normal. No other electrolyte abnormalities. Given that her hemoglobin is stable over the past month and 7.0 I do not think she requires emergent blood transfusion. She is given oral and IV potassium replacement in the emergency room. Stool Hemoccult was obtained which is negative for microscopic blood. She does not report any black or blood in her stool. This appears to be a stable and chronic anemia and I feel I can follow-up safely outpatient. I did speak with the patient's primary care doctor who had already ordered the patient on iron and is agreeable to starting iron transfusion and further workup for this anemia/referral to hematology if he feels is appropriate. In addition he is aware of her hypokalemia. Will put the patient on a 5-day course of potassium supplements?suspect she is hypokalemic because she is on hydrochlorothiazide. He will follow-up with repeat labs. Patient is agreeable this plan of care. Patient discharged home in stable condition. Is given return precautions. Lab Data Labs: Laboratory Results - last 24 hr 10/23/23 11:42 WBC 4.3 L RBC 4.30 Hgb 7.0 L Hct 26.4 L MCV 61.4 L MCH 16.3 L MCHC 26.5 L RDW Std Deviation 44.7 H RDW Coeff of Trent 21.2 H Plt Count 126 L Immature Gran % (Auto) 0.200 Neut % (Auto) 58.8 Lymph % (Auto) 29.8 [place] % (Auto) 7.5 Eos % (Auto) 2.8 Baso % (Auto) 0.9 Absolute Neuts (auto) 2.5 Absolute Lymphs (auto) 1.27 Nucleated RBC % 0 Differential Comment SCANNED Polychromasia RARE Anisocytosis 2+ PT 16.6 H INR 1.3 APTT 34.7 Sodium 137 Potassium 2.9 L Chloride 107 Carbon Dioxide 21.0 Anion Gap 9 BUN 9 Creatinine 0.60 Estim Creat Clear Calc 108.79 Est GFR (MDRD) Af Amer 141 Est GFR (MDRD) Non-Af 116 BUN/Creatinine Ratio 15.1 Glucose 94 Lactic Acid 1.8 Calcium 8.7 Magnesium 1.8 Total Bilirubin 1.10 H AST 23 ALT 20 Alkaline Phosphatase 107 Total Protein 7.0 Albumin 3.4 Globulin 3.6 Albumin/Globulin Ratio 0.9 Serum , Qual NEGATIVE Blood Type B POSITIVE Antibody Screen NEGATIVE Discharge Plan Triage Chief Complaint: Abn Labs ED Provider: Ela Coffman Dx/Rx/DC Orders Clinical Impression: Anemia, Acute hypokalemia Instructions: ED Anemia, Type Not Specified (Adult), ED Hypokalemia Prescriptions: New potassium chloride 10 mEq tablet extended release 30 meq PO DAILY 5 Days Qty: 15 0RF No Action ferrous sulfate 325 mg (65 mg iron) tablet 325 mg PO DAILY Patient Comments: PT STATES THEY JUST GOT PRESCRIBED THIS AND HAVE NOT YET STARTED IT ( OF 10/23/23). pantoprazole 40 mg Tablet,Delayed Release (Dr/Ec) 40 mg PO DAILY lisinopril 20 mg tablet 20 mg PO DAILY gabapentin 100 mg capsule 100 mg PO 4X/DAY Patient Comments: PT STATES THAT THEY HAVE THIS MEDICATION BUT DOESN'T FEEL LIKE THEY NEED TO TAKE IT ( OF 10/23/23). ropinirole 4 mg tablet 4 mg PO QHS PRN (Reason: RESTLESS LEGS ) escitalopram oxalate 20 mg tablet 20 mg PO DAILY bupropion HCl 300 mg tablet extended release 24 hr 300 mg PO DAILY Patient Comments: PT STATES THEY ARE PRESCRIBED A 150MG AND A 300MG TABLET TO TAKE ONE OF EACH TOGETHER ONCE DAILY. PT FEELS LIKE THIS IS TOO MUCH SO THEY ONLY TAKE THE 300MG TABLET ( OF 10/23/23). bupropion HCl 150 mg tablet extended release 24 hr 150 mg PO DAILY Patient Comments: PT STATES THEY ARE PRESCRIBED A 150MG AND A 300MG TABLET TO TAKE ONE OF EACH TOGETHER ONCE DAILY. PT FEELS LIKE THIS IS TOO MUCH SO THEY ONLY TAKE THE 300MG TABLET ( OF 10/23/23). hydrochlorothiazide 12.5 mg tablet 12.5 mg PO DAILY folic acid 1 mg tablet 1 mg PO DAILY Qty: 72 5RF Primary Care Provider: Care Physician,No Primary Referrals: Care Physician,No Primary [Primary Care Provider] - Activity Restrictions/Additional Instructions: Please follow-up with your primary care doctor for further management of your low potassium and your anemia. You do not require emergent blood transfusion at this time. Print Language: Surinamese Disposition Disposition: Home, Self Care
[2023-10-23 16:28] VITALS: BP 115/105; PULSE 81; RESP 17; TEMP 36.3; O2SAT 94
== END 2023-10-23 16:34 | disposition home or self-care (01) ==
PROVIDERS: Emergency Provider Emergency Medicine; Visit Provider Emergency Medicine
DX: D64.9 Anemia, unspecified (principal); E87.6 Hypokalemia; F17.210 Nicotine dependence, cigarettes, uncomplicated; I10 Essential (primary) hypertension; F41.9 Anxiety disorder, unspecified; F32.A Depression, unspecified; Z79.899 Other long term (current) drug therapy
CPT/HCPCS: 80053; 82274; 83605; 83735; 84703; 85025; 85610; 85730; 86850; 86900; 86901; 96365; 99282; J7040; J7050; A4216

== ENCOUNTER → 2023-11-14 | Outpatient (CLI) | payer SELFPAY ==
[2023-11-14 12:03] LABS: Absolute Lymphocyte Count 0.78 X10^3/uL (0.83-4.51); Absolute Neutrophil Count 0.6 X10^3/uL (2.0-7.7); Basophil# 0.01 X10^3/uL; Basophil% 0.6 % (0-1); Eosinophil# 0.11 X10^3/uL; Eosinophils% 6.3 % (0-5); Hematocrit 30.1 % (37-47); Hemoglobin 8.1 g/dL (12.0-15.0); Immature Platelet Fraction 3.5 % (1.0-7.9); Lymphocyte # 0.78 X10^3/ul (0.83-4.51); Lymphocyte % 44.6 % (19-41); Mean Corp Hgb Conc 26.9 g/dL (32-36); Mean Corpuscular Hgb 17.2 pg (27.0-32.0); Mean Corpuscular Volume 63.9 fL (81-99); Monocyte# 0.24 X10^3/uL; Monocyte% 13.7 % (0-10); NRBC Flagged by Analyzer 0 % (0-5); Neutrophil # 0.61 X10^3/uL (2.7-7.7); Neutrophil % 34.8 % (47-70); POSITIVE DIFFERENTIAL YES; POSITIVE MORPHOLOGY YES; Platelet Count 114 K/mm3 (150-450); RBC Distribution Width CV 25.3 % (11.6-14.6); RBC Distribution Width SD 55.4 fl (35.1-43.9); RET-HE 16.4 pg (30-35); Red Blood Count 4.71 M/mm3 (4.2-5.4); Reticulocyte Count 0.55 % (0.5-1.5); White Blood Count 1.8 K/mm3 (4.4-11.0)
[2023-11-14 12:26] LABS: Differential Indicated SCAN CRITERIA MET
[2023-11-14 12:27] LABS: Anisocytosis 2+; Differential Comment SCANNED; Hypochromasia 1+; Microcytosis 2+; Reactive Lymphocyte 1+; Schistocytes 1+
[2023-11-14 12:28] LABS: Acanthocytes 1+
[2023-11-14 12:33] LABS: ALB/GLOB Ratio 0.9 RATIO (0.9-2.4); AST(SGOT) 33 U/L (15-37); Alanine Aminotransfer ALT/SGPT 26 U/L (13-56); Albumin, Serum 3.1 g/dL (3.2-5.0); Alkaline Phosphatase 144 U/L (45-117); Anion Gap 8 (5-15); BUN 7 mg/dL (7-18); BUN/Creat Ratio 14.3 RATIO (10-20); Calcium,Total 8.9 mg/dL (8.5-10.1); Chloride 107 mmol/L (98-107); Creatinine, Serum 0.49 mg/dL (0.55-1.02); EST Glomerular Filtration Rate 146 mL/min (>60); Est Glom Filt Rate - Afr Amer 177 mL/min (>60); Ferritin 5 ng/mL (8-252); Globulin 3.5 g/dL (2.2-4.2); Glucose 96 mg/dL (74-106); Iron 15 ug/dL (50-170); Iron Binding Capacity,Total 368 ug/dL (250-450); Potassium 3.8 mmol/L (3.5-5.1); Protein, Total 6.6 g/dL (6.4-8.2); Sodium Level 138 mmol/L (136-145)
[2023-11-15 04:08] LABS: AFP, Tumor Marker 2.3 ng/mL (0.0-6.4); Transferrin 293 mg/dL (192-364)
== END | disposition home or self-care (01) ==
PROVIDERS: Referring Provider Student in an Organized Health Care Education/Training Program; Visit Provider Student in an Organized Health Care Education/Training Program
DX: D64.9 Anemia, unspecified (principal)
CPT/HCPCS: 36415; 80053; 82105; 82728; 83540; 83550; 84466; 85025; 85045

== ENCOUNTER → 2023-11-17 | Outpatient (CLI) | payer SELFPAY ==
--- NOTE | 2023-11-17 09:10 | US_ITS ---
STUDY: ABDOMINAL ULTRASOUND - RIGHT UPPER QUADRANT REASON FOR VISIT: Female, 43 years old Cirrhosis TECHNIQUE: Ultrasound evaluation of the right upper quadrant was performed with real-time and static rashid-scale imaging. TECHNICAL QUALITY: Adequate. COMPARISON: Comparison is made with prior study dated May 06, 2022. FINDINGS: Liver: The liver measures 15.6 cm. There is increased echogenicity consistent with fatty infiltration. The bile ducts are within normal limits. There is hepatic color flow. The direction of portal flow is hepatopetal. There is a 1.6 cm x 1.7 cm x 1.8 cm cyst in the right lobe of the liver. Gallbladder: Normal distended gallbladder. The gallbladder wall measures 3.4 mm. There is a negative sonographic Ugalde''s sign. There is no pericholecystic fluid. There are no gallstones. A suspect a small polyp adherent to the gallbladder wall. This measures 2 mm. Common Bile Duct (C.B.D.): The common bile duct measures 4 mm. Pancreas: Normal size of the head, body and tail of the pancreas. There is normal echogenicity of the pancreas. There is no demonstrated pancreatic mass or cyst. Right Kidney: Normal size of the right kidney. The right kidney measures 12.3 cm x 5.8 cm x 5.3 cm. Normal renal cortex. The right cortex measures 2.4 cm. There is no demonstrated renal mass or cyst. There is fullness of the right renal pelvis although no basil hydronephrosis is seen. US/Liver IMPRESSION: Fatty infiltration of the liver. Small gallbladder polyp. Right hepatic cyst. Electronically Signed: Inderjit Sigala MD at 14:50 EDT ,
== END | disposition home or self-care (01) ==
LOC: US 09:09
PROVIDERS: Referring Provider Student in an Organized Health Care Education/Training Program; Visit Provider Student in an Organized Health Care Education/Training Program
DX: K74.60 Unspecified cirrhosis of liver (principal); D64.9 Anemia, unspecified
CPT/HCPCS: 76705

== ENCOUNTER 2023-12-04 11:14 | Day surgery (SDC) | payer MEDICAID, SELFPAY ==
[2023-12-04] VITALS (8 sets, daily range): BP systolic 84–126; BP diastolic 51–91; PULSE 60–74; RESP 16–18; TEMP 36.6–37; O2SAT 97–100; BMI 26.3
--- NOTE | 2023-12-04 | COLBX_PTH ---
PATIENT: CRESCENCIO BOSE LOC: EN U#:[id number] AGE/SX: 43/F ROOM: RE12/04/[address]: Dr. Dwayne Ryder DO : 1980 BED: DIS: 12/04/2023 SPEC #: [id number] RECD: 12/04/23 15:37 STATUS: ALEX JUANITO #: [id number] PRABHA: 12/04/23 00:[address]: Dwayne Ryder DEPT: SURGICAL PATHOLOGY RECD BY: Audrey Hernández ENTERED: 12/05/23 06:59 SP TYPE: COLON BX OTHR DR: Maria Elena Primary Care Phys Tissues: A - Duodenum, NOS B - Ileum, NOS Procedures: Surgery Specimen Level IV HEADER OPERATION: Colonoscopy, EGD with biopsy PRE-OP DIAGNOSIS: Gastric varices, anemia, history of cirrhosis TISSUE SUBMITTED: A- Duodenum biopsy, B- Terminal ileum biopsy MICROSCOPIC DIAGNOSIS A. Duodenum, biopsy: Mild non-specific chronic inflammation. See comment. B. Terminal ileum, biopsy: No pathologic change. / 12/06/2023 COMMENT A. The lambda propria is mildly expanded by chronic inflammatory cells. The villi are not significantly flattened. Clinical correlation is suggested. MICROSCOPIC DESCRIPTION Slides are reviewed. GROSS DESCRIPTION A. Received in fixative is one container labeled with the patient's name and designated Duodenum biopsy. The specimen consists of two irregular fragments of light avina soft tissue that in aggregate measure 0.8 x 0.3 x 0.1 cm. The specimen is totally submitted in one cassette. B. Received in fixative is one container labeled with the patient's name and designated Terminal ileum biopsy. The specimen consists of multiple irregular fragments of light avina soft tissue that in aggregate measure 1.0 x 0.3 x 0.1 cm. The specimen is totally submitted in one cassette. / 12/05/2023 TC:3 CPT:62372j3
[2023-12-04] MEDS: Lactated Ringers 1,000 ML 15 ML IV (11:43)
[2023-12-04 12:00] LABS: Internal QC Validated? YES +Cl - CLEAR BKGD; Pregnancy, Serum, hCG Quali. NEGATIVE Negative
--- NOTE | 2023-12-04 12:03 | PCM.PRE.AN2 ---
ASA Classification* ASA Classification ASA Classification: 3 Assessment & Plan Anesthesia* Anesthesia Assessment Anesthesia Assessment: Discussed sedation and/or anesthesia options, risks, benefits, and alternatives with patient/parents/legal guardian/POA. Questions invited. The patient/parents/legal guardian/POA seems to understand and agrees to proceed with anesthesia plan. Reviewed the physical assessment, medical history, allergy history and patient home medications list prior to surgery/procedure/anesthetic and documented any changes. Performed airway and anesthesia risk assessments. Anesthesia Type Anesthesia Type: MAC History Source History Obtained from:: Patient and Chart Anesthesia Focused Assessment* Temperature: 98.6 F Pulse Rate: 65 Blood Pressure: 126/91 Respiratory Rate: 16 Pulse Ox: 100 Oxygen Delivery Method: Room Air Airway Assessment Mouth opens: >3 cm Mallampati Score: III Teeth Condition: Chipped/Broken (Several chipped teeth. None are loose) Neck Range of motion (ROM): Full ROM Focused Labs Anesthesia Preop lab: CBC WBC 1.8 K/mm3 (4.4-11.0) L 11/14/23 11:41 RBC 4.71 M/mm3 (4.2-5.4) 11/14/23 11:41 Hgb 8.1 g/dL (12.0-15.0) L 11/14/23 11:41 Hct 30.1 % (37-47) L 11/14/23 11:41 Plt Count 114 K/mm3 (150-450) L 11/14/23 11:41 CHEMISTRY Potassium 3.8 mmol/L (3.5-5.1) 11/14/23 11:41 Sodium 138 mmol/L (136-145) 11/14/23 11:41 Magnesium 1.8 mg/dL (1.6-2.6) 10/23/23 11:42 Phosphorus 1.4 mg/dL (2.5-4.9) L 05/24/21 06:03 BUN 7 mg/dL (7-18) 11/14/23 11:41 Creatinine 0.49 mg/dL (0.55-1.02) L 11/14/23 11:41 Glucose 96 mg/dL (74-106) 11/14/23 11:41 TSH 0.68 uIU/mL (0.358-3.74) 09/28/23 11:06 COAG PT 16.6 SECONDS (11.7-14.9) H 10/23/23 11:42 Urine Test Negative Negative 05/06/22 01:00 Pre-Assessment Diagnosis/Proposed Procedure Planned Operative Procedure(s): EGD/CSCOPE Anesthesia History Anesthesia History - federal aid coordinator: Anesthesia History - federal aid coordinator Hx Hospitalization No 12/01/23 13:30 Any Problems With Anesthesia Yes: AWAKENED DURING SURGERY 12/01/23 13:30 AND COMBATIVE AT TIMES Cholinesterase deficiency No 12/01/23 13:30 You/Your Family Experience No 12/01/23 13:30 fever (hyperthermia) with Relationship Recent Exposure to Contagious No 12/04/23 11:35 Disease Does patient have nerve No 12/01/23 13:30 stimulator Patient instructed to have device shut off --Does patient have Pacemaker No 12/04/23 11:35 or ICD? When Was Last Pacemaker Check QUESTION #4 FULL TEXT: You/Your Family Experience fever (hyperthermia) with Anesthesia Last Oral Intake Last Oral intake: Last Oral Intake NPO since 08:30 12/04/23 11:35 Meds taken in AM with sips of Yes 12/04/23 11:35 water? Meds patient instructed to see medlist 12/04/23 11:35 take am of surgery Any additional information?: Yes NPO since: 08:30 (Patient finished her prep at 830.) PONV PONV - federal aid coordinator: PONV - federal aid coordinator Female Yes 12/01/23 13:30 HX of Motion Sickness Yes 12/01/23 13:30 HX of N/V After Surgery No 12/01/23 13:30 Non-Smoker No 12/01/23 13:30 Duration of Surgery greater No 12/01/23 13:30 than 60 minutes Number of Risk Factors 2 12/01/23 13:30 PONV Score Moderate Risk 12/01/23 13:30 Height & Weight Height & Weight: Anesthesia: Height & Weight Height 5 ft 6 in 12/04/23 11:35 Weight: 74 kg 12/04/23 11:35 Body Mass Index (BMI) 26.3 12/04/23 11:35 Respiratory Assessment Respiratory Assessment - federal aid coordinator: Respiratory Tract Infection Hx - federal aid coordinator Hx Respiratory Tract Infection No 12/01/23 13:30 STOP Sleep Apnea STOP Sleep Apnea - federal aid coordinator: STOP Sleep Apnea - federal aid coordinator Hx Hypertension Yes: CONTROLLED WITH MED 12/01/23 13:30 Hx Sleep Apnea No 12/01/23 13:30 CPAP BIPAP Do you snore loudly (louder No 12/01/23 13:30 than talking or can be heard Do you often feel tired/ Yes 12/01/23 13:30 fatigued/ sleepy during daytime? Has anyone observed you stop No 12/01/23 13:30 breathing during sleep? STOP Results Positive 12/01/23 13:30 QUESTION #5 FULL TEXT : Do you snore loudly (louder than talking or can be heard through closed doors)? 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 Specify any problems Hx of Preganancy in last 3 No 12/01/23 13:30 Months Nurse Filling Out Transfusion DSCHRIBER 12/01/23 13:30 & Questions: Date: 12/01/23 12/01/23 13:30 Time: 13:32 12/01/23 13:30 Patient unable to answer at this time (ie. confused, unrespo /Reproduction History /Reproductive History - federal aid coordinator: /Reproductive Hx- federal aid coordinator Hx Now No 12/01/23 13:30 Gestational Age (in weeks): EDC: Hx Hx Para Hx Section SAB No 12/01/23 13:30 Active Medications Active Medications: Current Medications Generic Name Dose Route Start Last Admin Trade Name Freq PRN Reason Stop Dose Admin Lactated Ringer's 1,000 mls @ 15 mls/hr 12/04/23 11:30 12/04/23 11:43 IV 15 mls/hr .Q48H ALLAN Administration [facility] Medical History (Updated 12/01/23 @ 13:37 by Abiola Liz) Difficulty swallowing Syncope Smoker Alcohol abuse Anxiety Depression Ulcer Hypertension Alcohol use Marijuana use Low iron Restless legs Injury of back Loss of consciousness Injury of head and neck Seizures Smoker Shortness of breath on exertion History of edema Chest pain Encephalopathy Alcoholic hepatitis Substance use HTN (hypertension) Acute GI bleeding Gastric varices Home Medications ?Medication ?Instructions ?Recorded ?Last Taken ?Type ferrous sulfate 325 mg (65 mg 325 mg PO DAILY ANEMIA 06/08/21 Unknown History iron) tablet pantoprazole 40 mg tablet,delayed 40 mg PO DAILY GERD 05/06/22 12/04/23 History release folic acid 1 mg tablet 1 mg PO DAILY SUPPLEMENT #72 09/15/23 10/22/23 Rx TABLETS bupropion HCl 150 mg 24 hr tablet, 150 mg PO DAILY DEPRESSION 10/23/23 12/04/23 History extended release bupropion HCl 300 mg 24 hr tablet, 300 mg PO DAILY DEPRESSION 10/23/23 12/04/23 History extended release escitalopram oxalate 20 mg tablet 20 mg PO DAILY DEPRESSION 10/23/23 12/04/23 History gabapentin 100 mg capsule 100 mg PO 4X/DAY NEUROPATHY 10/23/23 Unknown History hydrochlorothiazide 12.5 mg tablet 12.5 mg PO DAILY BLOOD PRESSURE 10/23/23 10/22/23 History lisinopril 20 mg tablet 20 mg PO DAILY BLOOD PRESSURE 10/23/23 12/04/23 History nadolol 20 mg tablet 20 mg PO DAILY Esophageal varcies 12/01/23 12/04/23 History Allergy/AdvReac Type Severity Reaction Status Date / Time phenobarbital Allergy Other Verified 12/04/23 11:32 Surgical History (Updated 12/01/23 @ 13:37 by Abiola Liz) History of esophagogastroduodenoscopy (EGD) Social History 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
--- NOTE | 2023-12-04 12:13 | PCM.HP.BLA ---
History and Physical Date of Admission: 12/04/23 OV 11.14.23 pt here for f/u visit from ER 10.23.23. Pt has extreme fatigue, trouble swallowing occasionally. Pt states she has a formed BM daily. Denies any blood in stools. Continues taking pantoprazole 40mg. 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 She established with [facility] after hospitalization at [facility] 05/23/21. She had concerns for GIB and had EGD performed. EGD 05/24/21 Joceline-Skinner tear, heater probe, Type 2 isolated gastric varies, protal hypertensive gastropathy CT abd/pel 06/21/21 nodular contours of liver suggestive of cirrhosis without mass, recanalized periumbilical vein with LUQ/paraesophageal varicose veins, portal HTN, periumbilical hernia Biochemical workup 06.15 without autoimmune etiology, HIV preliminary reactive, HIV differentiation non-reactive. CRP 8.02. Hgb 9.0, hematocrit 29.3, retic count 3.68, iron 25, TIBC WNL 423 MELD 07/26/21: 11 Last office visit 09/29/21: no signs of decompensation. No Signs of GI bleed, ascites, encephalopathy or jaundice. Anemic Last liver US 05/06/22: hepatomegaly and fatty infiltration of the liver. Distended gallbladder lumen ED visit 10/23/23 She presented to the ED 10/23/23 after getting labs drawn at her PCP which showed he hgb to be 6.6. She had no obvious signs of bleeding, no blood in her stool, normal menstrual cycles and not on blood thinners. She only complained of fatigue. In the ED, Hgb 7.0, MCV 61.4, WBC 4.3, PT 16.6, INR 1.3, K 2.9, t bili 1.0, albumin 3.4 Office Visit today 11/14/23 She has no complaints today besides extreme fatigue. She states she was fired from her job because she fell asleep at work. She has not had a drink since April of 2021 and no longer feels the urge to drink. She denies any abdominal pain, itching, confusion, jaundice, melena, or swelling. She has been constipated while taking iron so she has been taking Colace daily which seems to be helpful. She is not currently taking a beta agnes for esophageal varices but she has in the past. ROS Const Constitutional: Positive for fatigue; No fever(s) or weight change ENT ENT: Positive for difficulty swallowing Gastro GI: Positive for difficulty swallowing; No abdominal pain, belching, bloating, change in bowel habits, change in stool character, coffee ground emesis, constipation, cramping, diarrhea, heartburn, feeling full early, excessive flatus, incontinent of stools, Vomiting blood/hematemesis, Blood in stool, loose stools, Black,tarry stools, nausea/dyspepsia, pain with swallowing, vomiting or other Musc Musculoskeletal: Positive for joint pain, joint swelling, muscle cramps, muscle weakness, numbness, tingling, Arthritis and restless legs Skin Skin: No yellowing of the eye or itchy eyes Neuro Neurology: Positive for numbness, tingling and restless legs Psych Psychiatric: Positive for anxiety, Positive for depression and Positive for hyperactivity Endo Endocrine: Positive for fatigue; No weight change Aller/Imm Allergy/Immunologic: No itchy eyes Wil/Lymp Hematologic/Lymphatic: Positive for easy bruising; No easy bleeding Exam Const General: cooperative and comfortable Nutritional Appearance: average body habitus and well nourished [facility] Head: normal to inspection Ears: hearing grossly normal bilaterally Nose: external nose normal Face and sinus: normal facial exam Mouth: oral mucosae normal Throat: posterior oropharynx normal Eyes General: appearance normal, both eyes and all related structures Neck Neck: normal visual inspection Chest Chest palpation & inspection: normal inspection of the chest and normal palpation of entire chest wall Resp Effort & Inspection: normal respiratory effort Auscultation: Bilateral: Clear to Auscultation Cardio Palpation: normal PMI Rate: regular rate Rhythm: regular rhythm GI Inspection: normal to inspection Auscultation: normal bowel sounds Percussion: normal to percussion Palpation: no hepatosplenomegaly Skin General: no rashes or lesions noted Neuro General: patient alert Extrem General: normal to inspection Psych Affect: normal affect Assessment and Plan Assessment and Plan (1) Gastric varices: Status: Acute Plan: The patient has alcoholic cirrhosis with history of gastric varices. She has not had surveillance EGD since 2021. We will schedule her for an EGD. She does not currently take beta blockers but she has in the past. I prescribed nadolol 20 mg daily. Explained that this medication will help decrease her from bleeding from her gastric varices. (2) Anemia: Status: Acute Plan: Patient was found to be anemic after routine blood work with a hemoglobin of 6.6 with a low MCV. She has been experiencing fatigue but no other symptoms. She has no obvious signs of bleeding like blood in her stool or hematemesis. We will order EGD and colonoscopy to rule out any GI bleeding. She is already on ferrous sulfate for low iron. Will order iron studies (3) Hx of cirrhosis: Status: Acute Plan: She has a hx of alcoholic liver cirrhosis. She is no longer drinking. She states her last drink was in 2021. She has not had AFP lab test since 2021. She has not had liver US since 2022. I will order both these tests for hepatocellular carcinoma surveillance. Will also order CBC and CMP. Discussed taking miralax instead of colace for constipation. Orders: Orders I have examined the patient and the H&P has been reviewed. There are no clinical changes since date of exam.
--- NOTE | 2023-12-04 12:49 | OP.CCLET_ITS ---
12/04/2023 No Primary Care Physician Re : Upper GI endoscopy procedure for Flor El Dear Care Physician This procedure was performed on Monday, December 04, 2023. My impressions and recommendations are as follows: Impressions : - Normal esophagus. - Type 1 gastroesophageal varices (GOV1, esophageal varices which extend along the lesser curvature), without bleeding. - Portal hypertensive gastropathy. - Erythematous duodenopathy. Biopsied. Recommendations : - Discharge patient to home. - Resume previous diet. - Continue present medications. - Await pathology results. My findings are described in the full procedure note, which is enclosed. If I can be of further assistance, please feel free to contact me at . Sincerely, Dwayne Ryder, 12/04/2023 12:48:14 PM This report has been signed electronically.
--- NOTE | 2023-12-04 12:49 | OP.EGD_ITS ---
Patient Name: Flor El Procedure Date: 12/04/2023 12:19 PM Date of : 1980 Age: 43 Procedure: Upper GI endoscopy Indications: Gastric varices Providers: Dwayne Ryder DO Medicines: Monitored Anesthesia Care Patient Profile: This is a 43 year old female. Refer to note in patient chart for documentation of history and physical. Patient has symptoms of chronic epigastric abdominal pain. Complications: No immediate complications. Procedure: Pre-Anesthesia Assessment: - Prior to the procedure, a History and Physical was performed, and patient medications and allergies were reviewed. The patient is competent. The risks and benefits of the procedure and the sedation options and risks were discussed with the patient. All questions were answered and informed consent was obtained. Patient identification and proposed procedure were verified by the physician in the pre-procedure area. Mental Status Examination: alert and oriented. Airway Examination: normal oropharyngeal airway and neck mobility. Respiratory Examination: clear to auscultation. CV Examination: normal. Prophylactic Antibiotics: The patient does not require prophylactic antibiotics. Prior Anticoagulants: The patient has taken no anticoagulant or antiplatelet agents. ASA Grade Assessment: III - A patient with severe systemic disease. After reviewing the risks and benefits, the patient was deemed in satisfactory condition to undergo the procedure. The anesthesia plan was to use monitored anesthesia care (MAC). Immediately prior to administration of medications, the patient was re-assessed for adequacy to receive sedatives. The heart rate, respiratory rate, oxygen saturations, blood pressure, adequacy of pulmonary ventilation, and response to care were monitored throughout the procedure. The physical status of the patient was re-assessed after the procedure. After obtaining informed consent, the endoscope was passed under direct vision. Throughout the procedure, the patient's blood pressure, pulse, and oxygen saturations were monitored continuously. The colonoscope was introduced through the mouth, and advanced to the second part of duodenum. The upper GI endoscopy was accomplished without difficulty. The patient tolerated the procedure well. Scope In: 12:25:49 PM Scope Out: 12:29:01 PM Total Procedure Duration Time 0 hours 3 minutes 12 seconds Findings: The examined esophagus was normal. Type 1 gastroesophageal varices (GOV1, esophageal varices which extend along the lesser curvature) with no bleeding were found in the cardia. There were no stigmata of recent bleeding. They were 3 mm in largest diameter. Mild portal hypertensive gastropathy was found in the entire examined stomach. Mildly erythematous mucosa without active bleeding and with no stigmata of bleeding was found in the duodenal bulb. Biopsies were taken with a cold forceps for histology. Verification of patient identification for the specimen was done. Estimated blood loss was minimal. Impression: - Normal esophagus. - Type 1 gastroesophageal varices (GOV1, esophageal varices which extend along the lesser curvature), without bleeding. - Portal hypertensive gastropathy. - Erythematous duodenopathy. Biopsied. Recommendation: - Discharge patient to home. - Resume previous diet. - Continue present medications. - Await pathology results. Procedure Code(s): --- Professional --- 25497, Esophagogastroduodenoscopy, flexible, transoral; with biopsy, single or multiple CPT copyright 2021 [employer]. All rights reserved. The codes documented in this report are preliminary and upon bakelite molder review may be revised to meet current compliance requirements. Dwayne Ryder DO 12/04/2023 12:48:14 PM This report has been signed electronically. Number of Addenda: 0 Note Initiated On: 12/04/2023 12:19 PM
--- NOTE | 2023-12-04 12:51 | OP.COLON_ITS ---
Patient Name: Flor El Procedure Date: 12/04/2023 12:29 PM Date of : 1980 Age: 43 Procedure: Colonoscopy Indications: Iron deficiency anemia Providers: Dwayne Ryder DO Medicines: Propofol per Anesthesia Patient Profile: This is a 43 year old female. Refer to note in patient chart for documentation of history and physical. Patient has symptoms of chronic epigastric abdominal pain. Last Colonoscopy: none. The patient's first colonoscopy is today. Complications: No immediate complications. Procedure: Pre-Anesthesia Assessment: - Prior to the procedure, a History and Physical was performed, and patient medications and allergies were reviewed. The patient is competent. The risks and benefits of the procedure and the sedation options and risks were discussed with the patient. All questions were answered and informed consent was obtained. Patient identification and proposed procedure were verified by the physician in the pre-procedure area. Mental Status Examination: alert and oriented. Airway Examination: normal oropharyngeal airway and neck mobility. Respiratory Examination: clear to auscultation. CV Examination: normal. Prophylactic Antibiotics: The patient does not require prophylactic antibiotics. Prior Anticoagulants: The patient has taken no anticoagulant or antiplatelet agents. ASA Grade Assessment: III - A patient with severe systemic disease. After reviewing the risks and benefits, the patient was deemed in satisfactory condition to undergo the procedure. The anesthesia plan was to use monitored anesthesia care (MAC). Immediately prior to administration of medications, the patient was re-assessed for adequacy to receive sedatives. The heart rate, respiratory rate, oxygen saturations, blood pressure, adequacy of pulmonary ventilation, and response to care were monitored throughout the procedure. The physical status of the patient was re-assessed after the procedure. After I obtained informed consent, the scope was passed under direct vision. Throughout the procedure, the patient's blood pressure, pulse, and oxygen saturations were monitored continuously. The colonoscope was introduced through the anus and advanced to the terminal ileum. The colonoscopy was performed without difficulty. The patient tolerated the procedure well. The quality of the bowel preparation was adequate. The terminal ileum, ileocecal valve, appendiceal orifice, and rectum were photographed. Scope In: 12:31:25 PM Scope Withdrawal Time 0 hours 8 minutes 50 seconds Scope Out: 12:44:52 PM Total Procedure Duration Time 0 hours 13 minutes 27 seconds Findings: The perianal and digital rectal examinations were normal. The colon (entire examined portion) appeared normal. Localized mild inflammation characterized by shallow ulcerations was found in the terminal ileum. Biopsies were taken with a cold forceps for histology. Verification of patient identification for the specimen was done. Estimated blood loss was minimal. Impression: - The entire examined colon is normal. - Mild inflammation was found in the ileum secondary to ileitis. Biopsied. Recommendation: - Discharge patient to home. - Resume previous diet. - Continue present medications. - Await pathology results. - Repeat colonoscopy in 5 years for surveillance based on pathology results. Procedure Code(s): --- Professional --- 61541, Colonoscopy, flexible; with biopsy, single or multiple CPT copyright 2021 [employer]. All rights reserved. The codes documented in this report are preliminary and upon patent chemist review may be revised to meet current compliance requirements. Dwayne Ryder DO 12/04/2023 12:50:40 PM This report has been signed electronically. Number of Addenda: 0 Note Initiated On: 12/04/2023 12:29 PM
--- NOTE | 2023-12-04 12:51 | OP.CCLET_ITS ---
12/04/2023 No Primary Care Physician Re : Colonoscopy procedure for Flor El Dear Care Physician This procedure was performed on Monday, December 04, 2023. My impressions and recommendations are as follows: Impressions : - The entire examined colon is normal. - Mild inflammation was found in the ileum secondary to ileitis. Biopsied. Recommendations : - Discharge patient to home. - Resume previous diet. - Continue present medications. - Await pathology results. - Repeat colonoscopy in 5 years for surveillance based on pathology results. My findings are described in the full procedure note, which is enclosed. If I can be of further assistance, please feel free to contact me at . Sincerely, Dwayne Ryder, 12/04/2023 12:50:40 PM This report has been signed electronically.
--- NOTE | 2023-12-04 12:55 | PCM.POST.ANE ---
Anesthesia: Postop Eval I Current Vital Signs Temperature: 98 F Pulse Rate: 74 Blood Pressure: 90/51 Respiratory Rate: 16 Pulse Ox: 97 Oxygen Delivery Method: Room Air Assessment Airway patent: Yes Spontaneous unlabored respirations: Yes Mental status: Asleep nausea: No Vomiting: No Anesthesia Complication: No Fluid Hydration Crystalloid volume administer (ml): 800 Total IV fluid infused: 800 Progress Note Anesthesia document: Postop Eval 1 completed: Yes
--- NOTE | 2023-12-04 14:03 | PCM.POSTANE2 ---
Anesthesia Postop Eval I Sum Postop Eval Completion status Anesthesia document: Postop Eval 1 completed: Yes Anesthesia Postop Eval I Summary Anesthesia Postop Eval I Summary: Anesthesia Postop Eval I: Assessment Summary Airway patent Yes 12/04/23 12:56 [email or web address] Spontaneous unlabored Yes 12/04/23 12:56 [email or web address] respirations Mental status Asleep 12/04/23 12:56 [email or web address] nausea No 12/04/23 12:56 [email or web address] Vomiting No 12/04/23 12:56 [email or web address] Anesthesia Postop Eval I: Fluid Summary Crystalloid volume administer 800 12/04/23 12:56 [email or web address] (ml) Colloids volume administered ( ml) Blood Product volume administered (ml) Total IV fluid infused 800 12/04/23 12:56 [email or web address] Anesthesia Postop Eval I: Summary Notes Anesthesia Complication No 12/04/23 12:56 [email or web address] Anesthesia Complication Comment: Post-operative progress note Anesthesia: Postop Eval II Evaluation Mental status: Awake and Calm Pain Level: 0 nausea: No Vomiting: No Complications Anesthesia Complication: No
[2023-12-04 15:50] LABS: CRP < 2.90 mg/L (0.0-3.0)
[2023-12-06 11:10] LABS: Anti-Centromere B Ab <0.2 AI (0.0-0.9); Anti-Chromatin <0.2 AI (0.0-0.9); Anti-Jo <0.2 AI (0.0-0.9); Anti-Scleroderma-70 AB <0.2 AI (0.0-0.9); Anti-dsDNA Ab <1 IU/mL (0-9); RNP Ab <0.2 AI (0.0-0.9); SJOGREN'S Anti-SS-A test < 0.2 AI (0.0-0.9); SJOGREN'S Anti-SS-B test < 0.2 AI (0.0-0.9); Smith Ab <0.2 AI (0.0-0.9)
[2023-12-07 16:09] LABS: ACCA 26 units (0-90); AFP, Tumor Marker 2.7 ng/mL (0.0-6.4); ALCA 3 units (0-60); AMCA 24 units (0-100); Cytoplasmic Ab (C-ANCA) <1:20 titer (Neg:<1:20); Deamidated Gliadin IgA 7 units (0-19); Deamidated Gliadin IgG 3 units (0-19); Endomysial Antibody IgA Negative (Negative); IgG, Quant 1240 mg/dL (586-1602); Immunoglobulin A 367 mg/dL (87-352); Immunoglobulin G, Subclass 1 692 mg/dL (248-810); Immunoglobulin G, Subclass 2 281 mg/dL (130-555); Immunoglobulin G, Subclass 3 67 mg/dL (15-102); Immunoglobulin G, Subclass 4 38 mg/dL (2-96); Perinuclear Ab (P-ANCA) <1:20 titer (Neg:<1:20); gASCA 16 units (0-50); t-Transglutaminase IgA <2 U/mL (0-3)
== END 2023-12-04 13:41 | disposition home or self-care (01) ==
LOC: EN 11:19 → AC 11:19
PROVIDERS: Anesthesiology; Visit Provider Internal Medicine Gastroenterology
PROC: 0DJD8ZZ Inspection of Lower Intestinal Tract, Via Natural or Artificial Opening Endoscopic (ICD-10-PCS; CPT 45378; principal; 2023-12-04 12:10)
DX: K29.80 Duodenitis without bleeding (principal); K76.6 Portal hypertension; I85.10 Secondary esophageal varices without bleeding; F10.21 Alcohol dependence, in remission; D50.9 Iron deficiency anemia, unspecified; R53.83 Other fatigue; F17.210 Nicotine dependence, cigarettes, uncomplicated; Z79.899 Other long term (current) drug therapy; I10 Essential (primary) hypertension; R20.0 Anesthesia of skin; R20.2 Paresthesia of skin; Z87.19 Personal history of other diseases of the digestive system; K52.9 Noninfective gastroenteritis and colitis, unspecified; K63.3 Ulcer of intestine; K31.89 Other diseases of stomach and duodenum; F41.9 Anxiety disorder, unspecified; F32.A Depression, unspecified
CPT/HCPCS: 45380; 43239; 36415; 82105; 82784; 82787; 83516; 84703; 86036; 86140; 86225; 86235; 86255; 86256; 86671; 88305; J7120; J2405

== ENCOUNTER → 2025-02-04 | Outpatient (CLI) | payer MEDICAID, SELFPAY ==
[2025-02-04 10:36] LABS: Hematocrit 42.7 % (37-47); Hemoglobin 14.3 g/dL (12.0-15.0); Mean Corp Hgb Conc 33.5 g/dL (32-36); Mean Corpuscular Volume 83.6 fL (81-99); Mean Platelet Vol. 9.2 fl (6.2-12.0); Platelet Count 206 K/mm3 (150-450); RBC Distribution Width CV 14.6 % (11.6-14.6); RBC Distribution Width SD 44.5 fl (35.1-43.9); Red Blood Count 5.11 M/mm3 (4.2-5.4); White Blood Count 4.2 K/mm3 (4.4-11.0)
[2025-02-04 11:08] LABS: AST(SGOT) 30 U/L (<=31); Alanine Aminotransfer ALT/SGPT 22 U/L (<=34); Albumin, Serum 4.2 g/dL (3.5-5.0); Alkaline Phosphatase 116 U/L (35-104); Anion Gap 12 (5-15); BUN 7 mg/dL (4-19); BUN/Creat Ratio 12.6 RATIO (10-20); Calcium,Total 9.4 mg/dL (7.6-11.0); Carbon Dioxide 23.0 mmol/L (21.0-32.0); Chloride 104 mmol/L (98-108); Globulin 3.1 g/dL (2.2-4.2); Glucose 98 mg/dL (70-99); Potassium 3.7 mmol/L (3.3-5.1)
[2025-02-05 04:07] LABS: GGTP 39 IU/L (0-60)
== END | disposition home or self-care (01) ==
PROVIDERS: Referring Provider Psychiatry & Neurology Psychiatry; Visit Provider Psychiatry & Neurology Psychiatry
DX: K74.60 Unspecified cirrhosis of liver (principal); D64.9 Anemia, unspecified
CPT/HCPCS: 36415; 80053; 82977; 84443; 85027